=== PATIENT | male | born 1965 | race Two or more races ===

== ENCOUNTER 2018-11-18 12:57 | Observation (INO) | payer OTHER ==
[2018-11-18 13:16] VITALS: BMI 28.3
--- NOTE | 2018-11-18 13:16 | PDOC ---
Rapid Medical Evaluation Time Seen by Provider: 11/18/18 13:11 Medical Evaluation: Allergies Allergy/AdvReac Type Severity Reaction Status Date / Time aspirin Allergy unknown Verified 12/02/16 02:26 11/18/18 13:11 I performed a brief in-person evaluation of this patient. Chief complaint is: Sent by Dr. Gaurav Ricketts, seen in office with headache and HTN (190 systolic). Headache started 3 days ago. Has dizziness and blurry vision today. Took Lisinopril/HCTZ prior to arrival. Pertinent physical exam findings include: No focal neurologic deficits. BP here 155/85. I have ordered the following: EKG, labs, HCT Patient will proceed to the ED for further evaluation. Discharge Disposition - Diagnosis Headache Qualifiers: Headache type: unspecified Headache chronicity pattern: acute headache High blood pressure Qualifiers: Hypertension type: unspecified Qualified Code(s): I10 - Essential (primary) hypertension - Referrals - Patient Instructions - Post Discharge Activity
[2018-11-18 13:41] LABS: BASO % 0.4 % (0-2.0); EOS % 1.1 % (0-4.5); HEMOGLOBIN 14.6 GM/dL (11.7-16.9); LYMPH % 30.8 % (8-40); MCH 27.2 pg (25.7-33.7); MCHC 33.8 g/dl (32.0-35.9); MEAN CELL VOLUME 80.3 fl (80-96); MEAN PLT VOLUME 8.6 fl (7.5-11.1); MONO % 6.4 % (3.8-10.2); NEUT % 61.3 % (42.8-82.8); PLATELET COUNT 97 K/MM3 (134-434); RBC 5.36 M/mm3 (4.00-5.60); RDW 13.8 % (11.9-15.9); WHITE BLOOD COUNT 3.7 K/mm3 (4.0-10.0)
[2018-11-18] MEDS ORDERED: ACETAMINOPHEN 325 MG TABLET (FP) PO ONE (13:48)
[2018-11-18] MEDS ORDERED: ACETAMINOPHEN 325 MG TABLET (FP) ONE (14:00)
--- NOTE | 2018-11-18 14:08 | PDOC ---
History of Present Illness - General Chief Complaint: Blood Pressure Problem Stated Complaint: BLOOD PRESSURE PROBLEM Time Seen by Provider: 11/18/18 13:11 - History of Present Illness Initial Comments: Bryant Jung is a 53yo man with a PMH of HTN who was sent from his PMD with symptomatic hypertension. He is Burmese-speaking only, and a smocker was used to obtain his history. Mr Jung states that he went to his PMD today becuase he feared that his blood pressure was high. He has had a headache for several days, which he describes as posterior neck pain that extends to the occipital head and around to his b/l forehead. He additionally notes some blurry vision when the headache was most severe. Mr reports a history of poorly controlled BP, and he states that these are the symptoms he always has when his pressure is high. He and his state that his doctor told him to take an additional dose of his home BP meds ( lisinopril 10, HCTZ 12.5) and directed him to come to the ED for evaluation. He also states that his PMD is going to set him up with a heart monitor at home due to the sensation of being able to feel his heart beating on occasion, which Mr Jung feels is related to his BP being high. Per his , Mr Jung was previously admitted with HTN and given a medication at home for several months that controlled his hypertension better, but he was taken off of it after 3-4 months; they do not remember the name of this medication. Mr Jung does state that he has been taking his medications at home as prescribed, and he has not missed any doses lately. He denies chest pain, SOB, focal weakness, confusion, AMS (also denied by his ), numbness/tingling, change in hearing, or change in urination. His headaches start in the posterior neck and extend around his head in a band. He has not tried taking any pain medication for the headaches, but he has noticed in the past that putting an ice pack on his neck helps with the headache. He does endorse a significant amount of stress recently. Mr Jung reports that after taking an extra dose of his BP medication today he feels significantly improved, with his headache nearly resolved, normal vision, and no other symptoms currently. Past History - Past Medical History Allergies/Adverse Reactions: Allergies Allergy/AdvReac Type Severity Reaction Status Date / Time aspirin Allergy unknown Verified 11/18/18 13:11 Home Medications: Ambulatory Orders Losartan 50Mg/Hctz 12.5MG [Hyzaar -] 1 tab PO DAILY 11/18/18 COPD: No HTN: Yes - Surgical History Appendectomy: Yes - Suicide/Smoking/Psychosocial Hx Smoking History: Never smoked Have you smoked in the past 12 months: No Information on smoking cessation initiated: No Hx Alcohol Use: No Drug/Substance Use Hx: No Review of Systems - Review of Systems Comments:: General: No fevers, no chills, no weight or appetite change, no malaise HEENT: +Blurry vision, +JUAREZ, no changes in hearing, no congestion, no sore throat CV: No chest pain, +Palpitations, +h/o HTN, no LE edema Pulm: No SOB, no cough, no wheezing GI: No nausea or vomiting, no change in bowel habits, no melena : No frequency, no urgency, no dysuria Musc: No back pain, no joint swelling, no recent injury Skin: No rash, no lesions, no erythema Endo: No excessive thirst, no heat/cold intolerance Heme: No unusual bruising or bleeding, no swollen glands Neuro: No syncope, no numbness/tingling, no focal weakness Vasc: No claudication Psych: No recent change in mood, no SI or HI *Physical Exam - Vital Signs Last Vital Signs Temp Pulse Resp BP Pulse Ox 98.6 F 75 18 155/85 96 11/18/18 13:12 11/18/18 13:12 11/18/18 13:12 11/18/18 13:12 11/18/18 13:12 - Physical Exam Comments: General: Comfortable, no acute distress HEENT: PERRL, EOMI, MMM, voice normal, normal neck ROM, no LAD Cards: RRR, no murmur appreciated Pulm: Comfortable on room air, clear to auscultation bilaterally Abd: Soft, nontender, nondistended : No CVA tenderness Ext: Atraumatic. No LE edema. ROM intact. Strength 5/5 and equal bilaterally Vasc: Extremities WWP. Palpable radial and pedal pulses bilaterally Skin: Normal color, no rashes or lesions Neuro: A&Ox3, CN grossly intact, normal speech, motor/sensory grossly intact and symmetric Psych: Mood appropriate to situation Moderate Sedation - Procedure Monitoring Vital Signs: Procedure Monitoring Vital Signs Temperature 98.6 F 11/18/18 13:12 Pulse Rate 75 11/18/18 13:12 Respiratory Rate 18 11/18/18 13:12 Blood Pressure 155/85 11/18/18 13:12 O2 Sat by Pulse Oximetry (%) 96 11/18/18 13:12 ED Treatment Course - LABORATORY CBC & Chemistry Diagram: 11/18/18 13:31 11/18/18 13:31 - RADIOLOGY Radiology Studies Ordered: Category Date Time Status HEAD CT WITHOUT CONTRAST [CT] Stat CT Scan 11/18/18 13:57 Ordered Medical Decision Making - Medical Decision Making 11/18/18 13:58 Bryant Jung is a 53yo man with a PMH of HTN who presents from his PMD due to symptomatic HTN with headache and blurry vision today. His SBP was 192 in the office, but was reduced to 158 on arrival after taking an additional dose of his home lisinopril/HCTZ. - Currently benign exam, blurry vision and JUAREZ resolved, but does report having the sensation of feeling his heart beating earlier today as well. Concerning for possible hypertensive emergency, ACS, or potentially intracranial hemorrhage given HTN, JUAREZ, vision changes. - Per pt, has had significant stress and baseline poorly controlled hypertension. Also reports significant stress lately. Could be poor BP control at baseline with tension headache that he did not attempt to treat at home, assuming it was due to his BP. - CBC, CMP, UA, EKG, CXR, non-contrast CT head ordered in E (CT canceled and reordered following discussion with Dr Harden). - EKG completed on arrival to main ED. Up-sloping ST segments in lateral leads seen on prior EKGs, most likely early repolarization. New T-wave inversions concerning for possible ischemia in I, II, III, aVF - Acetaminophen for JUAREZ 11/18/18 14:15 - CBC and chemistry unremarkable. Trop added on given EKG changes, lab called 11/18/18 14:29 - Previous EKG sent by patient's tool radial drill press set up operator from approximately 2 weeks ago. Appears very similar to EKG from today. T-wave depressions were seen previously , so lower concern that the changes are due to acute ischemia today - Aluminizer also noted that Mr Jung had been scheduled for a stress test but did not show; will advise Mr Jung to reschedule 11/18/18 15:07 - CT head completed, reviewed in ED. Radiology report also completed. No acute abnormalities. - Trop completed, 0.05. Within normal range but elevated from 0.02 one year ago. Will recheck in 30 minutes to ensure that it is not continuing to rise. - If second trop is negative, will likely discharge home with cardiology follow up. However, did report to Dr Harden that he had chest pain earlier today. 11/18/18 18:25 - Repeat troponin 0.06, increased slightly since initial lab. - Discussed obs admission for ACS ruleout with Mr Jung and his . They understand and agree with the plan. - Page sent to hospitalist; PMD is out of [facility] [employer] system (Dr Campbell?) - Currently appears comfortable, no chest pain 11/18/18 18:49 - Discussed with Dr Sweeney. Will accept to tele obs. Requested consult for Dr Dave. Discussed with Dr Harden and Dr Burgess. Lisy Trujillo PGY1 *DC/Admit/Observation/Transfer Diagnosis at time of Disposition: Chest pain Headache Qualifiers: Headache type: unspecified Headache chronicity pattern: acute headache High blood pressure Qualifiers: Hypertension type: unspecified Qualified Code(s): I10 - Essential (primary) hypertension - Discharge Dispostion Decision to Admit order: Yes - Referrals - Patient Instructions Additional Instructions: Discharge Instructions: You were seen in the emergency department for a headache and high blood pressure. Your blood pressure had already decreased by the time you arrived at the hospital. While in the emergency department, you had tests to check your blood counts, electrolytes, kidney function, and heart. You also had a CT scan of your head for evaluation because you reported having vision changes. All of your lab tests and CT scan were normal. Home Care: - Continue to take all of your medications as previously prescribed - You may consider getting a blood pressure machine at your house so that you can check your blood pressure at home. This can let you know whether your headaches or other symptoms are due to your hypertension or from some other reason. If you notice that your systolic pressure (top number) is over 160 you should see a doctor. - If you continue to have headaches, you can try taking acetaminophen (Tylenol) 650-1000mg up to every 6 hours as needed for pain. Follow Up: - See your regular doctor within the next 2-3 days for a blood pressure check. - You should make an appointment to see your tool radial drill press set up operator within the next week. You may need additional testing or a medication change. Your tool radial drill press set up operator also stated that you need to reschedule a stress test. - Seek immediate medical care if you have continued or worsening headache or if you develop additional symptoms along with your headache including any neurological symptoms (one-sided weakness, confusion, sleepiness, changes in speech), multiple episodes of vomiting, chest pain, shortness of breath, or have any medical emergency. Instrucciones de descarga: Usted fue visto en el departamento de emergencias por un dolor de noe y presin arterial yaw. Rahman presin arterial ya haba disminuido cuando lleg al hospital. Mientras estaba en el departamento de emergencias, se le realizaron pruebas para verificar naya recuentos sanguneos, electrolitos, funcin renal y corazn. Tambin se le realiz neil tomografa computarizada de la noe para rahman evaluacin porque inform que [place] cambios en la visin. Todas naya pruebas de laboratorio y tomografa computarizada fueron normales. Cuidados en el hogar: - Contine tomando todos naya medicamentos segn lo prescrito anteriormente. - Puede considerar comprar neil mquina de presin arterial en rahman casa para poder controlarla en rahman hogar. Kell puede hacerle saber si naya oriana de noe u otros sntomas se deben a rahman hipertensin o por alguna otra razn. Si nota que rahman presin sistlica (nmero superior) es superior a 160, debe consultar a un mdico. - Si contina teniendo oriana de noe, puede intentar luz maria acetaminofn ( Tylenol) 650-1000mg cada 6 horas segn sea necesario para el dolor. Seguir: - Consulte a rahman mdico de cabecera dentro de los siguientes 2 a 3 childs para neil revisin de la presin arterial. - Debe hacer neil loki para savanna a rahman cardilogo dentro de la prxima semana. Es posible que necesite pruebas adicionales o un cambio de medicacin. Rahman cardilogo tambin declar que necesita reprogramar neil prueba de esfuerzo. - Busque atencin mdica inmediata si juarez continuado o empeorado el dolor de noe o si desarrolla sntomas adicionales junto con rahman dolor de noe, incluidos sntomas neurolgicos (debilidad unilateral, confusin, somnolencia, cambios en el habla), episodios mltiples de vmitos, dolor en el pecho, falta de aire de aliento, o tiene alguna emergencia mdica. - Post Discharge Activity
[2018-11-18 14:15] LABS: ALK PHOS 75 U/L (45-117); ANION GAP 5 MMOL/L (8-16); BILIRUBIN,TOTAL 0.5 mg/dL (0.2-1); BLOOD UREA NITROGEN 18 mg/dL (7-18); CALCIUM 8.4 mg/dL (8.5-10.1); CHLORIDE 103 mmol/L (98-107); CO2 31 mmol/L (21-32); CREATININE 1.2 mg/dL (0.55-1.3); GLUCOSE,RANDOM 88 mg/dL (74-106); POTASSIUM 3.6 mmol/L (3.5-5.1); SGOT/AST 26 U/L (15-37); SGPT/ALT 40 U/L (13-61); SODIUM 140 mmol/L (136-145); TOT PROT 7.5 g/dl (6.4-8.2)
--- NOTE | 2018-11-18 14:22 | PDOC ---
Attending Attestation - Resident Resident Name: Lisy Trujillo - ED Attending Attestation I have performed the following: I have examined & evaluated the patient, The case was reviewed & discussed with the resident, I agree w/resident's findings & plan, Exceptions are as noted - HPI HPI: 11/18/18 15:13 The patient is a 53 year old M with a significant PMH of HTN who presents to the emergency department with a headache and chest pain since last night. Patient states he has had prior visits to the ER for poorly controlled HTN with similar symptoms as he presents today. Patient states he typically gets headaches with associated chest pressure when his blood pressure is elevated. Patient describes the chest pain as mild and intermittent with associated tachycardia. Patient went to his PCPs office today for an appointment and was told his blood pressure was in the 190s systolic. The PCP told him to take an additional dose of his lisinopril and hydrochlorothiazide and come to the ER for further evaluation. Patient is still complaining of a mild headache, but denies any chest pain. The patient dnies leg swelling, denies shortness of breath, and denies dizziness. Denies fever, chills, nausea, vomit, diarrhea and constipation. Denies dysuria, frequency, urgency and hematuria. Allergies: NKA Past surgical history: None reported. Social history: No reported alcohol, drug or cigarette use - Physicial Exam PE: 11/18/18 15:15 "GENERAL: Awake, alert, and fully oriented, in no acute distress. HEAD: No signs of trauma EYES: PERRLA, EOMI, sclera anicteric, conjunctiva clear ENT: Auricles normal inspection, hearing grossly normal, nares patent, oropharynx clear without exudates. Moist mucosa NECK: Nontender, no stepoffs, Normal ROM, supple, no lymphadenopathy, JVD, or masses LUNGS: Breath sounds equal, clear to auscultation bilaterally. No wheezes, and no crackles HEART: Regular rate and rhythm, normal S1 and S2, no murmurs, rubs or gallops ABDOMEN: Soft, nontender, normoactive bowel sounds. No guarding, no rebound. No masses EXTREMITIES: Normal range of motion, no edema. No clubbing or cyanosis. No cords, erythema, or tenderness NEUROLOGICAL: Cranial nerves II through XII intact. 5/5 strength and sensation in all extremities, Normal speech, normal gait, normal cerebellar function SKIN: Warm, Dry, normal turgor, no rashes or lesions noted. - Medical Decision Making 11/18/18 15:15 53 M with HTN presenting to ED with JUAREZ and chest pressure, now improved after BP control. Pt with TWI on EKG that are confirmed to be old (I spoke with pt's vc++ developer over phone). Pt currently chest pain free. - Labs, tropx2 - CT head - Tylenol 11/18/18 16:08 Labs wnl, trop negative x1 CT head unremarkable 11/18/18 17:12 Repeat trop now up to 0.06 Will admit to tele obs Heart Score/ECG Review - History History: Slightly suspicious - Electrocardiogram EKG: Non specific repolarization disturbance - Age Age: 45-65 - Risk Factors Risk Factors Heart Score: Yes Hx Hypertension, Yes Positive family hx of cardiac disease Based on the list above the patient has:: 1-2 risk factors - Troponin Troponin: </= normal limit - Score Heart Score - Total: 3
--- NOTE | 2018-11-18 15:19 | EKG ---
Test Reason : Blood Pressure : / mmHG Vent. Rate : 074 BPM Atrial Rate : 074 BPM P-R Int : 176 ms QRS Dur : 112 ms QT Int : 390 ms P-R-T Axes : 056 036 -86 degrees QTc Int : 432 ms NORMAL SINUS RHYTHM VOLTAGE CRITERIA FOR LEFT VENTRICULAR HYPERTROPHY T WAVE ABNORMALITY, CONSIDER INFEROLATERAL ISCHEMIA ABNORMAL ECG WHEN COMPARED WITH ECG OF 02-DEC-2016 02:26, T WAVE INVERSION NOW EVIDENT IN INFERIOR LEADS INVERTED T WAVES HAVE REPLACED NONSPECIFIC T WAVE ABNORMALITY IN LATERAL LEADS Confirmed by ELOY AMIN, MICAELA ([id number]) on 11/18/2018 3:18:41 PM Referred By: Confirmed By:MICAELA LYONS MD
[2018-11-18 17:23] LABS: URINE APPEARANCE CLEAR; URINE BILIRUBIN NEGATIVE (<2.0 mg/dL); URINE COLOR STRAW; URINE GLUCOSE (UA) NEGATIVE (NEGATIVE); URINE KETONE NEGATIVE (NEGATIVE); URINE LEUK ESTERASE NEGATIVE (NEGATIVE); URINE NITRITE NEGATIVE (NEGATIVE); URINE PROTEIN NEGATIVE (NEGATIVE); URINE UROBILINOGEN NEGATIVE mg/dL (0.2-1.0)
--- NOTE | 2018-11-18 20:05 | HP ---
Admitting History and Physical - Primary Care Physician PCP: Kyara Sweeney - Admission History of Present Illness: Bryant Jung is a 53yo man with a PMH of HTN who was sent from his PMD with symptomatic hypertension. He is Maori-speaking only, and a rackman was used to obtain his history. Mr Jung states that he went to his PMD today becuase he feared that his blood pressure was high. He has had a headache for several days, which he describes as posterior neck pain that extends to the occipital head and around to his b/l forehead. He additionally notes some blurry vision when the headache was most severe. Mr reports a history of poorly controlled BP, and he states that these are the symptoms he always has when his pressure is high. He and his state that his doctor told him to take an additional dose of his home BP meds ( lisinopril 10, HCTZ 12.5) and directed him to come to the ED for evaluation. - Past Medical History Cardiovascular: Yes: HTN - Smoking History Smoking history: Never smoked Have you smoked in the past 12 months: No - Alcohol/Substance Use Hx Alcohol Use: No Home Medications - Allergies Allergies/Adverse Reactions: Allergies Allergy/AdvReac Type Severity Reaction Status Date / Time aspirin Allergy unknown Verified 11/18/18 13:11 - Home Medications Home Medications: Ambulatory Orders Losartan 50Mg/Hctz 12.5MG [Hyzaar -] 1 tab PO DAILY 11/18/18 Carvedilol [Coreg -] 6.25 mg PO BID #60 tablet 11/20/18 Review of Systems - Review of Systems Cardiovascular: reports: Chest Pain Neurological: reports: Headache Physical Examination Vital Signs: Vital Signs Temperature 98.6 F 11/18/18 13:12 Pulse Rate 75 11/18/18 13:12 Respiratory Rate 18 11/18/18 13:12 Blood Pressure 155/85 11/18/18 13:12 O2 Sat by Pulse Oximetry (%) 96 11/18/18 13:12 Constitutional: Yes: No Distress HENT: Yes: Atraumatic Neck: Yes: Supple Cardiovascular: Yes: Regular Rate and Rhythm Respiratory: Yes: CTA Bilaterally Gastrointestinal: Yes: Normal Bowel Sounds Extremities: Yes: WNL Edema: No Peripheral Pulses WNL: Yes Neurological: Yes: Alert, Oriented Labs: CBC, BMP 11/18/18 13:31 11/18/18 13:31 Imaging - Results Chest X-ray: Report Reviewed Cat Scan: Report Reviewed Problem List - Problems (1) Chest pain Assessment/Plan: tele monitoring fu cardiac profile cardiology consult Code(s): R07.9 - CHEST PAIN, UNSPECIFIED Qualifiers: Chest pain type: other chest pain Qualified Code(s): R07.89 - Other chest pain; R07.8 - Other chest pain (2) Headache Assessment/Plan: prn tylenol monitor bp Code(s): R51 - HEADACHE Qualifiers: Headache type: unspecified Headache chronicity pattern: acute headache (3) Hypertension Assessment/Plan: on meds Code(s): I10 - ESSENTIAL (PRIMARY) HYPERTENSION Qualifiers: Hypertension type: unspecified Qualified Code(s): I10 - Essential (primary ) hypertension Assessment/Plan Laboratory Tests 11/18/18 11/18/18 11/18/18 13:31 13:31 17:00 WBC 3.7 L RBC 5.36 Hgb 14.6 Hct 43.0 MCV 80.3 MCH 27.2 MCHC 33.8 RDW 13.8 Plt Count 97 L MPV 8.6 Absolute Neuts (auto) 2.3 Neutrophils % 61.3 Lymphocytes % 30.8 Monocytes % 6.4 Eosinophils % 1.1 Basophils % 0.4 Nucleated RBC % 0 Sodium 140 Potassium 3.6 Chloride 103 Carbon Dioxide 31 Anion Gap 5 L BUN 18 Creatinine 1.2 Creat Clearance w eGFR > 60 Random Glucose 88 Calcium 8.4 L Total Bilirubin 0.5 AST 26 ALT 40 Alkaline Phosphatase 75 Creatine Kinase 433 H Creatine Kinase Index 0.5 CK-MB (CK-2) 2.5 Troponin I 0.05 0.06 H Total Protein 7.5 Albumin 4.0 Urine Color Urine Appearance Urine pH Ur Specific [place] Urine Protein Urine Glucose (UA) Urine Ketones Urine Blood Urine Nitrite Urine Bilirubin Urine Urobilinogen Ur Leukocyte Esterase 11/18/18 17:12 WBC RBC Hgb Hct MCV MCH MCHC RDW Plt Count MPV Absolute Neuts (auto) Neutrophils % Lymphocytes % Monocytes % Eosinophils % Basophils % Nucleated RBC % Sodium Potassium Chloride Carbon Dioxide Anion Gap BUN Creatinine Creat Clearance w eGFR Random Glucose Calcium Total Bilirubin AST ALT Alkaline Phosphatase Creatine Kinase Creatine Kinase Index CK-MB (CK-2) Troponin I Total Protein Albumin Urine Color Straw Urine Appearance Clear Urine pH 7.0 Ur Specific [place] 1.009 L Urine Protein Negative Urine Glucose (UA) Negative Urine Ketones Negative Urine Blood Negative Urine Nitrite Negative Urine Bilirubin Negative Urine Urobilinogen Negative Ur Leukocyte Esterase Negative Active Medications Generic Name Dose Route Start Last Admin Trade Name Freq PRN Reason Stop Dose Admin Acetaminophen 650 mg 11/18/18 20:06 Tylenol - PO Q6H PRN FEVER Carvedilol 6.25 mg 11/19/18 13:45 11/20/18 09:56 Coreg - PO 6.25 mg BID HYACINTH Administration HCTZ/Losartan Potassium 1 tab 11/19/18 10:00 11/20/18 09:56 Hyzaar - PO 1 tab DAILY HYACINTH Administration
[2018-11-18] MEDS ORDERED: ACETAMINOPHEN 325 MG TABLET (FP) PO PRN (20:06)
[2018-11-19] MEDS: LOSARTAN 50MG/HCTZ 12.5MG 1 TAB (FP) PO SCH (10:27)
--- NOTE | 2018-11-19 12:58 | CON.CARD ---
Consult Consult Specialty:: Cardiology Referred by:: Emergency Medicine Lisy Trujillo Reason for Consultation:: Hypertensive urgency - History of Present Illness Chief Complaint: Headache History of Present Illness: Bryant Jung is a 53yo man with a PMH of HTN who was sent from his PMD with symptomatic hypertension. He is Turkmen-speaking only, history per chart review. The patient is a 53 year old M with a significant PMH of HTN who presents to the emergency department with a headache and chest pain since last night. Patient states he has had prior visits to the ER for poorly controlled HTN with similar symptoms as he presents today. Patient states he typically gets headaches with associated chest pressure when his blood pressure is elevated. Patient describes the chest pain as mild and intermittent with associated tachycardia and palpitations. Patient presented to his PCPs office for an appointment and was told his blood pressure was in the 190s systolic. The PCP told him to take an additional dose of his lisinopril and hydrochlorothiazide and come to the ER for further evaluation. Patient is still complaining of a mild headache, but denies any chest pain, leg swelling, shortness of breath, near or true syncope, orthopnea, PND or LE edema. He last saw bus info consultant 11/04 for similar symptoms. Allergies: ASA, Motrin->facial swelling Past surgical history: None reported. Social history: No reported alcohol, drug or cigarette use Personal Injury Litigation Paralegal: Henry Cortes MD at [facility] last visit 2018 - History Source History Provided By: Medical Record Limitations to Obtaining History: Language Barrier - Past Medical History Cardio/Vascular: Yes: HTN - Alcohol/Substance Use Hx Alcohol Use: No - Smoking History Smoking history: Never smoked Have you smoked in the past 12 months: No Home Medications - Allergies Allergies/Adverse Reactions: Allergies Allergy/AdvReac Type Severity Reaction Status Date / Time aspirin Allergy unknown Verified 11/18/18 13:11 - Home Medications Home Medications: Ambulatory Orders Losartan 50Mg/Hctz 12.5MG [Hyzaar -] 1 tab PO DAILY 11/18/18 Review of Systems - Review of Systems Cardiovascular: reports: Chest Pain, Palpitations Neurological: reports: Headache Vital Signs: Vital Signs Temperature 98.1 F 11/19/18 09:15 Pulse Rate 72 11/19/18 09:15 Respiratory Rate 16 11/19/18 09:15 Blood Pressure 173/100 H 11/19/18 09:15 O2 Sat by Pulse Oximetry (%) 96 11/19/18 09:15 Constitutional: Yes: No Distress, Calm Neck: Yes: Supple Respiratory: Yes: Regular, Diminished Gastrointestinal: Yes: Normal Bowel Sounds, Soft Cardiovascular: Yes: Regular Rate and Rhythm JVD: No Carotid Bruit: No Heart Sounds: Yes: S1, S2 Edema: No - Other Data Labs, Other Data: CBC, BMP 11/18/18 13:31 11/18/18 13:31 Troponin, BNP 11/18/18 11/18/18 13:31 17:00 Troponin I 0.05 0.06 H Troponin, BNP 11/18/18 11/18/18 13:31 17:00 Troponin I 0.05 0.06 H NSR @ 74 LVH with repol abnl Ejection Fraction %: LVEF > or = 40 % Imaging - Results Chest X-ray: Report Reviewed (NAD) Cat Scan: Report Reviewed (HCT: Negative) Problem List - Problems (1) Hypertensive urgency Code(s): I16.0 - HYPERTENSIVE URGENCY (2) Hypertensive heart disease Code(s): I11.9 - HYPERTENSIVE HEART DISEASE WITHOUT HEART FAILURE Qualifiers: Heart failure presence: without heart failure Qualified Code(s): I11.9 - Hypertensive heart disease without heart failure (3) Hypertensive encephalopathy Code(s): I67.4 - HYPERTENSIVE ENCEPHALOPATHY (4) Palpitations Code(s): R00.2 - PALPITATIONS (5) Subendocardial ischemia Code(s): I24.8 - OTHER FORMS OF ACUTE ISCHEMIC HEART DISEASE (6) Chest pain Code(s): R07.9 - CHEST PAIN, UNSPECIFIED Qualifiers: Chest pain type: other chest pain Qualified Code(s): R07.89 - Other chest pain; R07.8 - Other chest pain Assessment/Plan Echo: 11/04/2018 Mod cLVH and borderline normal LV systolic function LVEF 50-55% , mild MR, TR, AR 1. Hypertensive urgency, heart disease with encephelopathy 2. Palpitations r/o sustained arrhythmia 3. Diastolic dysfunction with subendocardial ischemia 4. Mild-mod PAD R>L 5. ASA allergy->facial swelling P:1. Trend trops to document peak, telemetry to assess arrhythmia burden 2. Add carvedilol 6.25 bid, agree with Hyzaar 50/12.5 qd with uptitration as tolerated 3. F/u with Dr. Henry Cortes upon d/c, he has already planned for him to undergo stress echo to exclude ischemia and holter monitoring to assess arrhythmia burden as outpatient 4. Thank you for consultative opportunity
[2018-11-19] MEDS ORDERED: CARVEDILOL 3.125 MG TABLET (FP) ONE (13:44)
[2018-11-19] MEDS: CARVEDILOL 6.25 MG TABLET (FP) PO SCH ×2 (13:45→21:09)
[2018-11-20] MEDS ORDERED: PT OWN MED DRAWER 7, Y5N ONE (09:52)
[2018-11-20] MEDS: LOSARTAN 50MG/HCTZ 12.5MG 1 TAB (FP) PO SCH (09:56)
[2018-11-20] MEDS: CARVEDILOL 6.25 MG TABLET (FP) PO SCH (09:56)
--- NOTE | 2018-11-20 10:55 | PN ---
Progress Note, Physician History of Present Illness: Chest pain, headache and palpitations resolved with addition of carvedilol and improved BP control. Automotive Parts Counterperson: Henry Cortes MD at [facility] last visit 2018 - Current Medication List Current Medications: Active Medications Acetaminophen (Tylenol -) 650 mg PO Q6H PRN PRN Reason: FEVER Carvedilol (Coreg -) 6.25 mg PO BID [facility] Last Admin: 11/20/18 09:56 Dose: 6.25 mg HCTZ/Losartan Potassium (Hyzaar -) 1 tab PO DAILY [facility] Last Admin: 11/20/18 09:56 Dose: 1 tab - Objective Vital Signs: Vital Signs Temperature 97.6 F 11/20/18 05:00 Pulse Rate 64 11/20/18 05:00 Respiratory Rate 18 11/20/18 05:00 Blood Pressure 157/70 11/20/18 05:00 O2 Sat by Pulse Oximetry (%) 98 11/20/18 04:00 Constitutional: Yes: No Distress, Calm Neck: Yes: Supple Cardiovascular: Yes: Regular Rate and Rhythm Respiratory: Yes: Regular, CTA Bilaterally Gastrointestinal: Yes: Normal Bowel Sounds, Soft Edema: No Labs: CBC, BMP 11/18/18 13:31 11/18/18 13:31 - ....Imaging EKG: Report Reviewed (Tele: NSR) Problem List - Problems (1) Hypertensive urgency Code(s): I16.0 - HYPERTENSIVE URGENCY (2) Hypertensive heart disease Code(s): I11.9 - HYPERTENSIVE HEART DISEASE WITHOUT HEART FAILURE Qualifiers: Heart failure presence: without heart failure Qualified Code(s): I11.9 - Hypertensive heart disease without heart failure (3) Hypertensive encephalopathy Code(s): I67.4 - HYPERTENSIVE ENCEPHALOPATHY (4) Palpitations Code(s): R00.2 - PALPITATIONS (5) Subendocardial ischemia Code(s): I24.8 - OTHER FORMS OF ACUTE ISCHEMIC HEART DISEASE (6) Chest pain Code(s): R07.9 - CHEST PAIN, UNSPECIFIED Qualifiers: Chest pain type: other chest pain Qualified Code(s): R07.89 - Other chest pain; R07.8 - Other chest pain Assessment/Plan Echo: 11/04/2018 Mod cLVH and borderline normal LV systolic function LVEF 50-55% , mild MR, TR, AR 1. Hypertensive urgency, heart disease with encephelopathy resolved 2. Palpitations w/o events on telemetry 3. Diastolic dysfunction with subendocardial ischemia 4. Mild-mod PAD R>L 5. ASA allergy->facial swelling P:1. Trops have peaked, telemetry w/o arrhythmia 2. Continue carvedilol 6.25 bid and Hyzaar 50/12.5 qd with uptitration as tolerated 3. May d/c home with f/u with Dr. Henry Cortes, he has already planned for him to undergo stress echo to exclude ischemia and holter monitoring to assess arrhythmia burden as outpatient 4. Thank you for consultative opportunity
[2018-11-20 11:07] VITALS: BP 133/73; PULSE 66; TEMP 98.2
--- NOTE | 2018-11-20 11:56 | DS ---
Physical Examination Vital Signs: Vital Signs Temperature 98.2 F 11/20/18 09:00 Pulse Rate 66 11/20/18 09:00 Respiratory Rate 18 11/20/18 09:00 Blood Pressure 133/73 11/20/18 09:00 O2 Sat by Pulse Oximetry (%) 98 11/20/18 09:00 Constitutional: Yes: No Distress HENT: Yes: Atraumatic Neck: Yes: Supple Cardiovascular: Yes: Regular Rate and Rhythm Respiratory: Yes: CTA Bilaterally Extremities: Yes: WNL Edema: No Peripheral Pulses WNL: Yes Neurological: Yes: Alert, Oriented Labs: CBC, BMP 11/18/18 13:31 11/18/18 13:31 Discharge Summary Reason For Visit: CHEST PAIN,HYPERTENSIOON Current Active Problems Chest pain (Acute) Headache (Acute) Hypertension (Acute) Hypertensive encephalopathy (Acute) Hypertensive heart disease (Acute) Hypertensive urgency (Acute) Palpitations (Acute) Subendocardial ischemia (Acute) Condition: Stable - Instructions Diet, Activity, Other Instructions: Discharge Instructions: You were seen in the emergency department for a headache and high blood pressure. Your blood pressure had already decreased by the time you arrived at the hospital. While in the emergency department, you had tests to check your blood counts, electrolytes, kidney function, and heart. You also had a CT scan of your head for evaluation because you reported having vision changes. All of your lab tests and CT scan were normal. Home Care: - Continue to take all of your medications as previously prescribed - You may consider getting a blood pressure machine at your house so that you can check your blood pressure at home. This can let you know whether your headaches or other symptoms are due to your hypertension or from some other reason. If you notice that your systolic pressure (top number) is over 160 you should see a doctor. - If you continue to have headaches, you can try taking acetaminophen (Tylenol) 650-1000mg up to every 6 hours as needed for pain. Follow Up: - See your regular doctor within the next 2-3 days for a blood pressure check. - You should make an appointment to see your assistant county engineer within the next week. You may need additional testing or a medication change. Your assistant county engineer also stated that you need to reschedule a stress test. - Seek immediate medical care if you have continued or worsening headache or if you develop additional symptoms along with your headache including any neurological symptoms (one-sided weakness, confusion, sleepiness, changes in speech), multiple episodes of vomiting, chest pain, shortness of breath, or have any medical emergency. Instrucciones de descarga: Usted fue visto en el departamento de emergencias por un dolor de noe y presin arterial yaw. [place] presin arterial ya haba disminuido cuando lleg al hospital. Mientras estaba en el departamento de emergencias, se le realizaron pruebas para verificar naya recuentos sanguneos, electrolitos, funcin renal y corazn. Tambin se le realiz neil tomografa computarizada de la noe para [place]ster evaluacin porque inform que [place] cambios en la visin. Todas naya pruebas de laboratorio y tomografa computarizada fueron normales. Cuidados en el hogar: - Contine tomando todos naya medicamentos segn lo prescrito anteriormente. - Puede considerar comprar neil mquina de presin arterial en chester casa para poder controlarla en [place] hogar. [place] puede hacerle saber si naya oriana de noe u otros sntomas se deben a chester hipertensin o por alguna otra razn. Si nota que [place] presin sistlica (nmero superior) es superior a 160, debe consultar a un mdico. - Si contina teniendo oriana de noe, puede intentar luz maria acetaminofn ( Tylenol) 650-1000mg cada 6 horas segn sea necesario para el dolor. Seguir: - Consulte a chester mdico de cabecera dentro de los siguientes 2 a 3 childs para neil revisin de la presin arterial. - Debe hacer neil loki para savanna a chester cardilogo dentro de la prxima semana. Es posible que necesite pruebas adicionales o un cambio de medicacin. [place] cardilogo tambin declar que necesita reprogramar neil prueba de esfuerzo. - Busque atencin mdica inmediata si andrade continuado o empeorado el dolor de noe o si desarrolla sntomas adicionales junto con [place] dolor de noe, incluidos sntomas neurolgicos (debilidad unilateral, confusin, somnolencia, cambios en el habla), episodios mltiples de vmitos, dolor en el pecho, falta de aire de aliento, o tiene alguna emergencia mdica. Disposition: HOME - Home Medications Comprehensive Discharge Medication List: Ambulatory Orders Losartan 50Mg/Hctz 12.5MG [Hyzaar -] 1 tab PO DAILY 11/18/18 Carvedilol [Coreg -] 6.25 mg PO BID #60 tablet 11/20/18 dc home
== END 2018-11-20 14:04 | disposition home or self-care (01) ==
LOC: JER 12:57 → JERBED 18:31 → UNDOADMOB 11-19 18:31 → JERBED 11-19 18:31 → J4W 11-19 20:43
PROVIDERS: ADMIT Internal Medicine; ATTEND Internal Medicine
DX: R07.89 Other chest pain (principal); I16.0 Hypertensive urgency; I11.9 Hypertensive heart disease without heart failure; I67.4 Hypertensive encephalopathy; R00.2 Palpitations; I24.8 Other forms of acute ischemic heart disease; R51 Headache; I10 Essential (primary) hypertension; Z88.6 Allergy status to analgesic agent
CPT/HCPCS: 36415; 70450-TC; 71046-TC-FY; 80053; 81003; 82550; 82553; 84484; 85025; 93005; 93010; 99285-25; G0378

== ENCOUNTER 2019-08-05 22:38 | Inpatient (IN) | payer OTHER ==
[2019-08-05 22:58] VITALS: BMI 29.2
[2019-08-06] MEDS ORDERED: LABETALOL HCL 5 MG/1 ML (100MG/20 ML VIAL) IVPUSH ONE (00:15)
--- NOTE | 2019-08-06 00:32 | PDOC ---
*Physical Exam - Vital Signs Last Vital Signs Temp Pulse Resp BP Pulse Ox 98.2 F 82 16 210/90 H 96 08/05/19 22:54 08/05/19 22:54 08/05/19 22:54 08/05/19 22:54 08/05/19 22:54 ED Treatment Course - LABORATORY CBC & Chemistry Diagram: 08/06/19 01:07 08/06/19 06:36 Medical Decision Making - Medical Decision Making 08/06/19 00:31 Mr Jung presents to the ER having NOT taken his blood pressure medications for the past 3 weeks Pt does not know the name of his medications Pt reports headache No weakness, no AMS Will attempt to find pt BP meds and re initiate it Pt seen by Midlevel Provider under my direct supervision Pt interviewed and examined Ancillary studies reviewed Laboratory Tests 08/06/19 08/06/19 01:07 01:07 BUN 29.6 H Creatinine 1.3 Creatine Kinase 168 Troponin I 0.19 H I agree with plan as outlined by Midlevel Provider Will admit for further management Pt is allergic to ASA, will not give 08/06/19 02:21 Discharge - Discharge Information Problems reviewed: Yes Clinical Impression/Diagnosis: Hypertensive emergency Hematuria Qualifiers: Hematuria type: unspecified type Qualified Code(s): R31.9 - Hematuria, unspecified Condition: Good Disposition: HOME - Admission Yes - Follow up/Referral - Patient Discharge Instructions - Post Discharge Activity
--- NOTE | 2019-08-06 01:09 | PDOC ---
History of Present Illness - General Chief Complaint: Headache Stated Complaint: HEADACHE/HBP Time Seen by Provider: 08/06/19 00:00 History Source: Patient Exam Limitations: Language Barrier ([employer] #[id number]) - History of Present Illness Initial Comments: 08/06/19 00:55 HISTORY OF PRESENT ILLNESS: This is a 54-year-old male past medical history of hypertension who presents the emergency department for evaluation of increased blood pressure and occipital headache over the past 3 days. Patient reports having blurry vision over this time. As well as hematuria and urinary frequency. Patient reports symptoms are in the setting of medication noncompliance over the past 2 to 3 weeks. Patient ran out of his blood pressure medication has not contacted his primary doctor for reevaluation. Patient is unsure who his primary doctor is other than it is "a woman doctor in the [place]." No recent travel or sick contacts. PAST MEDICAL HISTORY: Denies past medical history SURGICAL HISTORY: Denies ALLERGIES: ASA, Motrin REVIEW OF SYSTEMS General/Constitutional: Denies fever or chills. Denies weakness, weight change. HEENT: see HPI Cardiovascular: Denies chest pain or shortness of breath. Respiratory: Denies cough, wheezing, or hemoptysis. Gastrointestinal: Denies nausea, vomiting, diarrhea or constipation. Denies rectal bleeding. Genitourinary: see HPI Musculoskeletal: Denies joint or muscle swelling or pain. Denies neck or back pain. Skin and breasts: Denies rash or easy bruising. Neurologic: see HPI Psychiatric: Denies depression or anxiety. Endocrine: Denies increased thirst. Denies abnormal weight change. Hematologic/Lymphatic: Denies anemia, easy bleeding, or history of blood clots. Allergic/Immunologic: Denies hives or skin allergy. Denies latex allergy. PHYSICAL EXAM General Appearance: Well-appearing, appropriately dressed. No apparent distress , no intoxication. HEENT: EOMI, PERRLA, normal ENT inspection, normal voice, TMs normal, pharynx normal. No conjunctival pallor. No photophobia, scleral icterus. No diplopia noted. Confrontation testing is within normal limits. Neck: Supple. Trachea midline. No tenderness, rigidity, carotid bruit, stridor , lymphadenopathy, or thyromegaly. Respiratory/Chest: Lungs CTAB. No shortness of breath, chest tenderness, respiratory distress, accessory muscle use. No crackles, rales, rhonchi, stridor , wheezing, dullness Cardiovascular: RRR. S1, S2. No JVD, murmur, bradycardia, tachycardia. Vascular Pulses: Dorsalis-Pedis (R): 2+, Dorsalis-Pedis (L): 2+ Gastrointestinal/Abdominal: Normal bowel sounds. Abdomen soft, non-distended. No tenderness or rebound tenderness. No organomegaly, pulsatile mass, guarding, hernia, hepatomegaly, splenomegaly. Lymphatic: No adenopathy, tenderness. Musculoskeletal/Extremities: Normal inspection. FROM of all extremities, normal capillary refill. Pelvis Stable. No CVA tenderness. No tenderness to extremities, pedal edema, swelling, erythema or deformity. Integumentary: Appropriate color, dry, warm. No cyanosis, erythema, jaundice or rash Neurologic: community health program coordinator II-XII intact. Fully oriented, alert. Appropriate mood/affect. Motor strength 5/5. No appreciable EOM palsy, facial droop or sensory deficit. Gait steady. Negative Romberg. 08/06/19 01:14 Past History - Past Medical History Allergies/Adverse Reactions: Allergies Allergy/AdvReac Type Severity Reaction Status Date / Time aspirin Allergy unknown Verified 08/05/19 22:54 Home Medications: Ambulatory Orders Blood Pressure Test Kit-Wrist [Blood Pressure Kit] 1 each MC DAILY #1 kit Carvedilol [Coreg -] 6.25 mg PO BID #60 tablet 08/06/19 Carvedilol [Coreg -] 6.25 mg PO BID #60 tablet 08/06/19 Losartan 50Mg/Hctz 12.5MG [Hyzaar -] 1 tab PO DAILY #30 tablet 08/06/19 Asthma: No Cancer: No CVA: No COPD: No Dementia: No Diabetes: No HTN: Yes Hypercholesterolemia: Yes Liver Disease: No Seizures: No - Surgical History Appendectomy: Yes Cardiac Surgery: No Cholecystectomy: Yes - Immunization History Immunization Up to Date: Yes - Psycho Social/Smoking Cessation Hx Smoking History: Never smoked Have you smoked in the past 12 months: No Information on smoking cessation initiated: No Hx Alcohol Use: No Drug/Substance Use Hx: No *Physical Exam - Vital Signs Last Vital Signs Temp Pulse Resp BP Pulse Ox 98.2 F 82 16 210/90 H 96 08/05/19 22:54 08/05/19 22:54 08/05/19 22:54 08/05/19 22:54 08/05/19 22:54 ED Treatment Course - LABORATORY CBC & Chemistry Diagram: 08/06/19 01:07 08/06/19 06:36 - RADIOLOGY Radiology Studies Ordered: Category Date Time Status HEAD CT WITHOUT CONTRAST [CT] Stat CT Scan 08/06/19 00:12 Ordered CHEST PA & LAT [RAD] Stat Radiology 08/06/19 00:10 Ordered Medical Decision Making - Medical Decision Making 08/06/19 01:09 A/P: 54-year-old male with headache, blurry vision, hematuria and urinary frequency in the setting of medication noncompliance for 2 to 3 weeks Differential diagnosis includes but is not limited to ICH, hypertensive emergency, renal infarct, renal failure Patient has no flank pain renal infarct is less likely. Labs including cardiac profile CTH EKG CXR Urinalysis Labetalol 20 mg IV push Likely admission for hypertensive urgency 08/06/19 01:44 Patient signed out to MD Montelongo for continued evaluation Discharge - Discharge Information Problems reviewed: Yes Clinical Impression/Diagnosis: Hypertensive emergency Hematuria Qualifiers: Hematuria type: unspecified type Qualified Code(s): R31.9 - Hematuria, unspecified Condition: Good - Follow up/Referral - Patient Discharge Instructions - Post Discharge Activity
[2019-08-06 01:18] LABS: BASO % 0.6 % (0-2.0); EOS % 1.4 % (0-4.5); HEMATOCRIT 42.9 % (35.4-49); HEMOGLOBIN 14.2 GM/dL (11.7-16.9); LYMPH % 28.5 % (8-40); MCHC 33.1 g/dl (32.0-35.9); MEAN CELL VOLUME 81.6 fl (80-96); MEAN PLT VOLUME 8.8 fl (7.5-11.1); MONO % 7.3 % (3.8-10.2); NEUT % 62.2 % (42.8-82.8); PLATELET COUNT 111 K/MM3 (134-434); RBC 5.26 M/mm3 (4.00-5.60); RDW 14.2 % (11.9-15.9); WHITE BLOOD COUNT 6.5 K/mm3 (4.0-10.0)
[2019-08-06 01:31] LABS: INR 0.97 (0.83-1.09); PROTHROMBIN TIME (PATIENT) 11.4 SEC (9.7-13.0)
[2019-08-06] MEDS ORDERED: LABETALOL HCL 5 MG/1 ML (200MG/40ML VIAL) IVPB ONE (01:31)
--- NOTE | 2019-08-06 01:42 | PDOC ---
*Physical Exam - Vital Signs Last Vital Signs Temp Pulse Resp BP Pulse Ox 98.2 F 82 16 210/90 H 96 08/05/19 22:54 08/05/19 22:54 08/05/19 22:54 08/05/19 22:54 08/05/19 22:54 ED Treatment Course - LABORATORY CBC & Chemistry Diagram: 08/06/19 01:07 08/06/19 01:07 - ADDITIONAL ORDERS Additional order review: Laboratory Results 08/06/19 01:07 PT with INR 11.40 INR 0.97 08/06/19 01:07 RBC 5.26 MCV 81.6 MCHC 33.1 RDW 14.2 MPV 8.8 Neutrophils % 62.2 Lymphocytes % 28.5 Monocytes % 7.3 Eosinophils % 1.4 Basophils % 0.6 Medical Decision Making - Medical Decision Making 08/06/19 01:41 CBC CMP normal trop 0.19 - held aspirin bc denies chest pain/SOB, and severe allergy (eye, throat swelling) EKg shows NSR, LVH, HR 73, QTc 467, no ST changes given 20 labetalol for HTN, tylenol for headache Head CT did not show acute bleed/infarct/fracture CXR shows clear lung andrade Pending UA --- Signout from Damion Duran NP Bryant Jung is a 54yM w PMHx uncontrolled HTN presenting with headache, blurry vision, hematuria and urinary frequency d/t medication noncompliance for 2 to 3 weeks. Has elevated trop 0.19 - held aspirin bc denies chest pain/SOB, and severe allergy (eye, throat swelling). Head CT did not show acute bleed/infarct/fracture. 1st BP 210/90 - given 20 labetalol brought down to 151/72, tylenol for headache. Pending UA, no evidence of kidney injury. No evidence of lung infection on CXR Admit for hypertensive emergency w elevated trop, hematuria Discharge - Discharge Information Problems reviewed: Yes Clinical Impression/Diagnosis: Hypertensive emergency Hematuria Qualifiers: Hematuria type: unspecified type Qualified Code(s): R31.9 - Hematuria, unspecified Condition: Good - Follow up/Referral - Patient Discharge Instructions - Post Discharge Activity
[2019-08-06 01:44] LABS: ALBUMIN 3.9 g/dl (3.4-5.0); BILIRUBIN,TOTAL 0.3 mg/dL (0.2-1); BLOOD UREA NITROGEN 29.6 mg/dL (7-18); CREATININE 1.3 mg/dL (0.55-1.3); MAGNESIUM 2.3 mg/dL (1.8-2.4); POTASSIUM 3.7 mmol/L (3.5-5.1); TOT PROT 7.2 g/dl (6.4-8.2)
[2019-08-06] MEDS ORDERED: ACETAMINOPHEN 1000 MG/100 ML VIAL (NON FORMULARY) IVPB ONE (02:50)
[2019-08-06] MEDS ORDERED: ACETAMINOPHEN INJECTION 100 ML IVPB ONE (03:23)
[2019-08-06 04:14] LABS: EPI CELLS 0.5 /HPF (0-5/HPF); HYALINE CASTS 0 /lpf (0-8); URINE APPEARANCE CLEAR; URINE BACTERIA 0.7 /hpf (NEGATIVE); URINE BILIRUBIN NEGATIVE (NEGATIVE); URINE COLOR YELLOW; URINE GLUCOSE (UA) NEGATIVE (NEGATIVE); URINE KETONE NEGATIVE (NEGATIVE); URINE LEUK ESTERASE NEGATIVE (NEGATIVE); URINE NITRITE NEGATIVE (NEGATIVE); URINE PROTEIN 2+ (NEGATIVE); URINE RBC 1 /hpf (0-4); URINE UROBILINOGEN 0.2 mg/dL (0.2-1.0); URINE WBC 1 /hpf (0-5)
--- NOTE | 2019-08-06 04:36 | PN ---
Teaching Attending Note Name of Resident: Jason Garcia ATTENDING PHYSICIAN STATEMENT I saw and evaluated the patient. I reviewed the resident's note and discussed the case with the resident. I agree with the resident's findings and plan as documented. SUBJECTIVE: Patient is a 54 year old man with PMH of Uncontrolled HTN, HLD, Aspirin allergy and Nonadherence who present with increased blood pressure and occipital headache over the past 3 days. Patient reports having blurry vision over this time as well as hematuria and urinary frequency. Has been off his antihypertensive medications for 2 to 3 weeks. Patient denies chest pain, SOB, nausea, vomiting or diarrhea. Patient denies sick contacts or recent travel. Nonsmoker and denies alcohol and iliicit drug use. Has FH of DM and CAD. Does have health insurance to get his medications. OBJECTIVE: Alert Vital Signs Period Temp Pulse Resp BP Sys/Arias Pulse Ox Last 24 Hr 98.0 F-98.2 F 75-82 16-17 151-210/72-90 96-98 HEENT: No Jaundice, eye redness or discharge, PERRLA, EOMI. Normocephalic, atraumatic. External ears are normal and hearing is grossly intact. No nasal discharge. Neck: Supple, nontender. No palpable adenopathy or thyromegaly. No JVD Chest: Good effort. Clear to auscultation and percussion. Heart: Regular. No S3, rub or murmur Abdomen: Not distended, soft, nontender and no HSM. No rebound or guarding. Normal bowel sounds. Ext: Peripheral pulses intact. No leg edema. Skin: Warm and dry. No petechiae, rash or ecchymosis. Neuro: Alert. Oriented x3. CN 2-12 grossly intact. Sensation grossly intact in all four extremities and DTR are symmetric. Psych: Appropriate mood and affect. Good insight. Home Medications Medication Instructions Recorded Losartan 50Mg/Hctz 12.5MG [Hyzaar 1 tab PO DAILY 11/18/18 -] Carvedilol [Coreg -] 6.25 mg PO BID #60 tablet 11/20/18 Abnormal Lab Results 08/06/19 08/06/19 08/06/19 01:07 01:07 01:07 Plt Count 111 L Chloride 108 H Anion Gap 4 L BUN 29.6 H Troponin I 0.19 H Urine Protein 08/06/19 03:30 Plt Count Chloride Anion Gap BUN Troponin I Urine Protein 2+ H ASSESSMENT AND PLAN: 1. Hypertensive emergency - Likely due to nonadherence with drug regimen. Initial BP was 210/90 and after 20 mg IV Labetalol it came down to 151/72. He got Tylenol for headache. No acute abnormality on head CT and CXR shows cardiomegaly but no infiltrates. Low platelet count may be due to hypertensive emergency - will monitor closely. Will repeat UA and if proteinuria persists, will do nephrologic workup. Has had intermittent hematuria for weeks. Get kidney / bladder sonogram, consult Urology and Nephrology. Will restart suitable outpatient antihypertensive drugs when clinically appropriate an add HCTZ 12.5 mg qd. Revise regimen to ensure [id number] excellent BP control and debt management counselor patient on the injurious effects of uncontrolled hypertension. Nonpharmacologic measures to control hypertension like weight loss, salt restriction and exercise discussed. Importance of adherence to treatment regimen and attainment of normotension emphasized. Troponin is elevated but initial EKG didnot show any new significant ST-T wave changes: has chronic T wave inversion in V5 and V6. Will admit to telemetry to rule out ACS and get ECHO. Will continue comprehensive care for all of patient s comorbid conditions. 2. Overweight Counseled on the risks associated with being overweight. Will provide patient all the necessary assistance, counseling and positive reinforcement to facilitate weight loss. Consult poultry picker. 3. DVT prophylaxis - Lovenox 40 mg SQ q 24 hours. 4. Advance directives - Full code
--- NOTE | 2019-08-06 05:41 | HP ---
CHIEF COMPLAINT: PCP: unknown HISTORY OF PRESENT ILLNESS: 54 y/o Micronesian speaking male with PMHx of HTN here for chest pain and headache x3 days. Patient states that he ran out of his HTN medications 8 days ago and has not called his doctor to renew his medications. He states the chest pain is intermittent, nor worse with activity or food, can not describe how it feels, and he does not currently have any chest pain. He does currently have a headache. She states the headache has been constant, is in the back of his head , and occasionally has blurry vision associated with the headache. The headache feels similar to the past when he has had elevated blood pressures. He also complains of painless hematuria that he has had for the last month. He states the hematuria is intermittent but he has it everyday. He also complains of urinary frequency and has to wake up 5-6 times at night to go to the bathroom. He denies any abd pain, N/V/D, fevers, constipation, cough, numbness, tingling. ER course was notable for: (1) Initial BP of 210/90 -> went down to 151/72 after one dose of Labetalol 20mg (2) EKG with NSR, no acute ischemic changes noted. (3) Trop of 0.19 PAST MEDICAL HISTORY: HTN PAST SURGICAL HISTORY: denies Social History: Smoking: denies Alcohol: socially Drugs: denies Allergies aspirin Allergy - eyes swell up and throat starts to itch (Verified 08/05/19 22: 54) HOME MEDICATIONS: Home Medications Medication Instructions Recorded Losartan 50Mg/Hctz 12.5MG [Hyzaar 1 tab PO DAILY 11/18/18 -] Carvedilol [Coreg -] 6.25 mg PO BID #60 tablet 11/20/18 REVIEW OF SYSTEMS HEENT: intermittent blurry vision. denies sore throat, congestion Cardio: chest pain. denies palpitations, lightheadedness Resp: denies SOB, wheezing GI: denies vomiting, diarrhea, constipation, nausea : hematuria, urinary frequency. denies dysuria MSK: denies neck pain, back pain, joint pain SKIN: bruising of left knee. denies abrasions Neuro: headache. denies loss of consciousness, numbness, tingling, weakness PHYSICAL EXAMINATION Vital Signs - 24 hr 08/05/19 08/06/19 22:54 04:26 Temperature 98.2 F 98.0 F Pulse Rate 82 Pulse Rate [ 75 Right] Respiratory 16 17 Rate Blood Pressure 210/90 H Blood Pressure 151/72 [Left Arm] O2 Sat by Pulse 96 98 Oximetry (%) GENERAL: Awake, alert, and fully oriented, in no acute distress. HEAD: Normal with no signs of trauma. EYES: Pupils equal, round and reactive to light, extraocular movements intact, sclera anicteric, conjunctiva clear. No lid lag. EARS, NOSE, THROAT: Ears normal, nares patent, oropharynx clear without exudates. Moist mucous membranes. NECK: Normal range of motion, supple without lymphadenopathy, JVD, or masses. LUNGS: Breath sounds equal, clear to auscultation bilaterally. No wheezes, and no crackles. No accessory muscle use. HEART: Regular rate and rhythm, normal S1 and S2 without murmur, rub or gallop. ABDOMEN: Soft, nontender, not distended, normoactive bowel sounds, no guarding, no rebound, no masses. MUSCULOSKELETAL: Normal range of motion at all joints. No bony deformities or tenderness. No CVA tenderness. UPPER EXTREMITIES: 2+ pulses, warm, well-perfused. No cyanosis. No clubbing. No peripheral edema. LOWER EXTREMITIES: 2+ pulses, warm, well-perfused. No calf tenderness. No peripheral edema. NEUROLOGICAL: Cranial nerves II-XII intact. Normal speech. 5/5 strength upper and lower extremities. PSYCHIATRIC: Cooperative. Good eye contact. Appropriate mood and affect. SKIN: Warm, dry, normal turgor, no rashes or lesions noted, normal capillary refill. Laboratory Results - last 24 hr 08/06/19 08/06/19 08/06/19 01:07 01:07 01:07 WBC 6.5 RBC 5.26 Hgb 14.2 Hct 42.9 MCV 81.6 MCH 27.0 MCHC 33.1 RDW 14.2 Plt Count 111 L MPV 8.8 Absolute Neuts (auto) 4.1 Neutrophils % 62.2 Lymphocytes % 28.5 Monocytes % 7.3 Eosinophils % 1.4 Basophils % 0.6 Nucleated RBC % 0 PT with INR INR Sodium 142 Potassium 3.7 Chloride 108 H Carbon Dioxide 30 Anion Gap 4 L BUN 29.6 H Creatinine 1.3 Est GFR (CKD-EPI)AfAm 71.19 Est GFR (CKD-EPI)NonAf 61.43 Random Glucose 90 Calcium 9.0 Magnesium 2.3 Total Bilirubin 0.3 AST 26 ALT 43 Alkaline Phosphatase 93 Creatine Kinase 168 Creatine Kinase Index 0.6 CK-MB (CK-2) 1.1 Troponin I 0.19 H Total Protein 7.2 Albumin 3.9 Urine Color Urine Appearance Urine pH Ur Specific [place] Urine Protein Urine Glucose (UA) Urine Ketones Urine Blood Urine Nitrite Urine Bilirubin Urine Urobilinogen Ur Leukocyte Esterase Urine WBC (Auto) Urine RBC (Auto) Urine Casts (Auto) U Epithel Cells (Auto) Urine Bacteria (Auto) 08/06/19 08/06/19 01:07 03:30 WBC RBC Hgb Hct MCV MCH MCHC RDW Plt Count MPV Absolute Neuts (auto) Neutrophils % Lymphocytes % Monocytes % Eosinophils % Basophils % Nucleated RBC % PT with INR 11.40 INR 0.97 Sodium Potassium Chloride Carbon Dioxide Anion Gap BUN Creatinine Est GFR (CKD-EPI)AfAm Est GFR (CKD-EPI)NonAf Random Glucose Calcium Magnesium Total Bilirubin AST ALT Alkaline Phosphatase Creatine Kinase Creatine Kinase Index CK-MB (CK-2) Troponin I Total Protein Albumin Urine Color Yellow Urine Appearance Clear Urine pH 6.0 Ur Specific [place] 1.022 Urine Protein 2+ H Urine Glucose (UA) Negative Urine Ketones Negative Urine Blood Negative Urine Nitrite Negative Urine Bilirubin Negative Urine Urobilinogen 0.2 Ur Leukocyte Esterase Negative Urine WBC (Auto) 1 Urine RBC (Auto) 1 Urine Casts (Auto) 0 U Epithel Cells (Auto) 0.5 Urine Bacteria (Auto) 0.7 Imaging: CT head - negative for acute pathology CXR - negative for acute pathology ASSESSMENT/PLAN: 54 y/o Micronesian speaking male with PMHx of HTN here for chest pain and headache x3 days after not taking his HTN medications for 8 days. 1)Hypertensive emergency - patient with history of HTN, not taking medication for 8 days -Initial trop elevated 0.19 - trend trops -Labetalol 20mg given in ED with improvement of BP -continue home meds 2)Hematuria - patient with 1 month hx of painless hematuria -UA negative for blood, positive for 2+ protein -repeat UA -Kidney/Bladder U/S -Urology consulted, Dr. Sesay -may consider cystoscopy -BUN elevated -IVF 3)Prophylaxis -Heparin 4)FEN -NS @ 75mls/hr 5)Dispo -admitted to tele Visit type - Emergency Visit Emergency Visit: Yes ED Registration Date: 08/06/19 Care time: The patient presented to the Emergency Department on the above date and was hospitalized for further evaluation of their emergent condition. - New Patient This patient is new to me today: Yes Date on this admission: 08/06/19 - Critical Care Critical Care patient: No ATTENDING PHYSICIAN STATEMENT I saw and evaluated the patient. I reviewed the resident's note and discussed the case with the resident. I agree with the resident's findings and plan as documented. SUBJECTIVE: OBJECTIVE: ASSESSMENT AND PLAN:
[2019-08-06] MEDS ORDERED: SODIUM CHLORIDE 1,000 ML IV SCH (05:45)
[2019-08-06] MEDS: HEPARIN NA (PORCINE) 5,000 UNITS/ML 1ML VIAL SQ SCH ×2 (06:20→15:28)
[2019-08-06 07:16] LABS: BLOOD UREA NITROGEN 27.4 mg/dL (7-18); CALCIUM 8.5 mg/dL (8.5-10.1); CREATININE 1.2 mg/dL (0.55-1.3); POTASSIUM 3.3 mmol/L (3.5-5.1)
[2019-08-06] MEDS ORDERED: LOSARTAN 50MG/HCTZ 12.5MG 1 TAB (FP) PO SCH (10:00)
[2019-08-06] MEDS ORDERED: CARVEDILOL 6.25 MG TABLET (FP) PO SCH (10:00)
--- NOTE | 2019-08-06 10:47 | ECHO ---
Name: KARI GRIDER Exam:Adult Echocardiogram Study Date: 08/06/2019 10:00 AM Age: 54 yrs Reason For Study: EVALUATE CARDIAC FUNCTION Height: 64 in Weight: 170 lb BSA: 1.8 m2 MMode/2D Measurements & Calculations IVSd: 1.3 cm Ao root diam: 3.4 cm LVIDd: 4.9 cm LA dimension: 3.8 cm LVIDs: 3.4 cm LVPWd: 1.3 cm LVPWs: 2.0 cm EDV(Blairich): 115.4 ml ESV(Romi): 48.9 ml desc Ao Diam: 2.4 cm LVOT diam: 2.1 cm LVLd ap4: 7.8 cm SV(MOD-sp4): 74.0 ml EDV(MOD-sp4): 152.0 ml LVLs ap4: 7.0 cm ESV(MOD-sp4): 78.0 ml Doppler Measurements & Calculations MV E max jean-pierre: 56.3 cm/sec Ao V2 max: 131.1 cm/sec MV A max jean-pierre: 52.8 cm/sec Ao max P.0 mmHg MV E/A: 1.1 Ao V2 mean: 92.3 cm/sec MV dec time: 0.19 sec Ao mean P.0 mmHg Ao V2 VTI: 26.9 cm TATI(I,D): 2.8 cm2 AI P1/2t: 481.3 msec TATI(V,D): 3.1 cm2 AI max jean-pierre: 278.9 cm/sec LV V1 max P.0 mmHg AI max P.8 mmHg LV V1 mean P.5 mmHg AI dec slope: 169.7 cm/sec2 LV V1 max: 112.0 cm/sec LV V1 mean: 69.4 cm/sec LV V1 VTI: 21.0 cm SV(LVOT): 75.8 ml PA V2 max: 88.2 cm/sec PA max P.1 mmHg Med Peak E' Jean-Pierre: 4.5 cm/sec Med E/e': 12.5 Lat Peak E' Jean-Pierre: 5.0 cm/sec Lat E/e': 11.2 Left Ventricle There is mild concentric left ventricular hypertrophy. Ejection Fraction = 50-55%. The transmitral sp ectral Doppler flow pattern is suggestive of impaired LV relaxation. Right Ventricle The right ventricle is grossly normal size. The right ventricular systolic function is normal. Atria Normal left and right atrial size and function. Mitral Valve The mitral valve is normal in structure and function. There is no mitral valve stenosis. There is no mitral regurgitation noted. Tricuspid Valve The tricuspid valve is normal in structure and function. There is Trace to mild tricuspid regurgitati on. Right ventricular systolic pressure is normal. Aortic Valve There is mild aortic sclerosis.;. No hemodynamically significant valvular aortic stenosis. Mild aorti c regurgitation. Pulmonic Valve The pulmonic valve is not well seen, but is grossly normal. There is no pulmonic valvular stenosis. Great Vessels The aortic root is normal size. Pericardium/Pleura There is no pericardial effusion. Interpretation Summary There is mild concentric left ventricular hypertrophy. Ejection Fraction = 50-55%. The transmitral spectral Doppler flow pattern is suggestive of impaired LV relaxation. The right ventricle is grossly normal size. The right ventricular systolic function is normal. There is Trace to mild tricuspid regurgitation. There is mild aortic sclerosis.; Mild aortic regurgitation. There is no pericardial effusion. MD Parvez Maddox 08/06/2019 10:47 AM
[2019-08-06] MEDS ORDERED: HYDROCHLOROTHIAZIDE 12.5 MG CAPSULE (FP) PO SCH (11:00)
--- NOTE | 2019-08-06 12:29 | CON.CARD ---
Consult Consult Specialty:: Cardiology Referred by:: Hospitalist Medicine Reason for Consultation:: Hypertensive urgency - History of Present Illness Chief Complaint: Headache History of Present Illness: The patient is a 54 year old M with a significant PMH of HTN who presents to the emergency department with occipital headache last 3 days and chest pain since last night. Patient states he has had prior visits to the ER for poorly controlled HTN with similar symptoms as he presents today. Patient states he typically gets headaches with associated chest pressure when his blood pressure is elevated. Patient describes the chest pain as mild and intermittent with associated tachycardia and palpitations. Patient is still complaining of a mild headache, but denies any chest pain, leg swelling, shortness of breath, near or true syncope, orthopnea, PND or LE edema. He last saw direct support specialist 11/04/2018 for similar symptoms. Ran out of antihypertensive agents 2 weeks ago. Allergies: ASA, Motrin->facial swelling Past surgical history: None reported. Social history: No reported alcohol, drug or cigarette use Float Remover: Henry Cortes MD at [facility] last visit 4 months ago, stress test and echo reportedly normal - History Source History Provided By: Family Member Limitations to Obtaining History: Language Barrier - Past Medical History Cardio/Vascular: Yes: HTN - Alcohol/Substance Use Hx Alcohol Use: No - Smoking History Smoking history: Never smoked Have you smoked in the past 12 months: No Home Medications - Allergies Allergies/Adverse Reactions: Allergies Allergy/AdvReac Type Severity Reaction Status Date / Time aspirin Allergy unknown Verified 08/05/19 22:54 - Home Medications Home Medications: Ambulatory Orders Blood Pressure Test Kit-Wrist [Blood Pressure Kit] 1 each MC DAILY #1 kit Carvedilol [Coreg -] 6.25 mg PO BID #60 tablet 08/06/19 Carvedilol [Coreg -] 6.25 mg PO BID #60 tablet 08/06/19 Losartan 50Mg/Hctz 12.5MG [Hyzaar -] 1 tab PO DAILY #30 tablet 08/06/19 Review of Systems - Review of Systems Cardiovascular: reports: Chest Pain Neurological: reports: Headache Vital Signs: Vital Signs Temperature 98.1 F 08/06/19 07:46 Pulse Rate 72 08/06/19 10:45 Respiratory Rate 17 08/06/19 10:45 Blood Pressure 179/91 H 08/06/19 10:45 O2 Sat by Pulse Oximetry (%) 97 08/06/19 10:45 Constitutional: Yes: No Distress, Calm Neck: Yes: Supple Respiratory: Yes: Regular, CTA Bilaterally Gastrointestinal: Yes: Normal Bowel Sounds, Soft Cardiovascular: Yes: Regular Rate and Rhythm JVD: No Carotid Bruit: No Heart Sounds: Yes: S1, S2 Edema: No - Other Data Labs, Other Data: CBC, BMP 08/06/19 01:07 08/06/19 06:36 INR, PTT INR 0.97 (0.83-1.09) 08/06/19 01:07 Troponin, BNP 08/06/19 08/06/19 01:07 06:36 Troponin I 0.19 H 0.20 H Troponin, BNP 08/06/19 08/06/19 01:07 06:36 Troponin I 0.19 H 0.20 H Imaging - Results Chest X-ray: Report Reviewed (NAD) Cat Scan: Report Reviewed (HCT: No acute changes) Ultrasound: Report Reviewed (No hydro) Problem List - Problems (1) Chest pain Code(s): R07.9 - CHEST PAIN, UNSPECIFIED Qualifiers: Chest pain type: other chest pain Qualified Code(s): R07.89 - Other chest pain; R07.8 - Other chest pain (2) Headache Code(s): R51 - HEADACHE Qualifiers: Headache type: unspecified Headache chronicity pattern: acute headache (3) Hypertensive encephalopathy Code(s): I67.4 - HYPERTENSIVE ENCEPHALOPATHY (4) Hypertensive heart disease Code(s): I11.9 - HYPERTENSIVE HEART DISEASE WITHOUT HEART FAILURE Qualifiers: Heart failure presence: without heart failure Qualified Code(s): I11.9 - Hypertensive heart disease without heart failure (5) Subendocardial ischemia Code(s): I24.8 - OTHER FORMS OF ACUTE ISCHEMIC HEART DISEASE Assessment/Plan Wcho: 08/06/2019 Mild cLVH low normal LVEF 50-55%, impaired LV compliance, normal RV size and fxn, tr-mild TR, mild AR, no pericardial effusion Echo: 11/04/2018 Mod cLVH and borderline normal LV systolic function LVEF 50-55% , mild MR, TR, AR 1. Hypertensive urgency, heart disease with encephelopathy resolving 2. Palpitations w/o events on telemetry 3. Diastolic dysfunction with subendocardial ischemia 4. Hematuria 5. ASA allergy->facial swelling P:1. Trops have plateaued, telemetry w/o arrhythmia, replete K 2. Resume carvedilol 6.25 bid and Hyzaar 50/12.5 qd with uptitration as tolerated, emphasized importance of diet and medication compliance 3. May d/c home with f/u with Dr. Henry Cortes, previously underwent stress echo to exclude ischemia and holter monitoring to assess arrhythmia burden as outpatient 4. Thank you for consultative opportunity
[2019-08-06] MEDS ORDERED: POTASSIUM CHLORIDE TABS 20 MEQ TABLET.ER (FP) PO ONE ×2 (14:16→15:19)
--- NOTE | 2019-08-06 14:26 | EKG ---
Test Reason : Blood Pressure : / mmHG Vent. Rate : 073 BPM Atrial Rate : 073 BPM P-R Int : 182 ms QRS Dur : 102 ms QT Int : 424 ms P-R-T Axes : 061 033 034 degrees QTc Int : 467 ms NORMAL SINUS RHYTHM POSSIBLE LEFT ATRIAL ENLARGEMENT LEFT VENTRICULAR HYPERTROPHY NONSPECIFIC T WAVE ABNORMALITY PROLONGED QT ABNORMAL ECG WHEN COMPARED WITH ECG OF 18-NOV-2018 13:26, NONSPECIFIC T WAVE ABNORMALITY HAS REPLACED INVERTED T WAVES IN INFERIOR LEADS Confirmed by RENETTA FOSTER MD ([id number]) on 08/06/2019 2:25:56 PM Referred By: Confirmed By:RENETTA FOSTER MD
--- NOTE | 2019-08-06 16:12 | DS ---
Physical Exam: SUBJECTIVE: Patient seen and examined at the bedside. denies chest pain, no shortness of breath. did not get him cardiac medications because he ran out and did not have any refills. called 30 days supply for him to [facility] at [facility] per his request. he and daughter will f/u with radiological equipment specialist and urologist as an outpatient. OBJECTIVE: Patient is a 54 y/o [place] speaking male with PMHx of HTN here for chest pain and headache x 3 days. Patient states that he ran out of his HTN medications 8 days ago and has not called his doctor to renew his medications. He had chest pain and headaches when admitted, now both resolved. He is willing to follow up with urology as an outpatient. He is willing to see his radiological equipment specialist next week. Daughter to call for an appointment UA is negative and kidney u/s unremarkable, small cyst only seen. Cleared by cardiology for outpatient follow up Vital Signs Period Temp Pulse Resp BP Sys/Arias Pulse Ox Last 24 Hr 98.0 F-98.2 F 65-82 16-18 151-210/72-99 96-98 PHYSICAL EXAM GENERAL: The patient is awake, alert, and fully oriented, in no acute distress. HEAD: Normal with no signs of trauma. EYES: PERRL, extraocular movements intact, sclera anicteric, conjunctiva clear. ENT: Ears normal, nares patent, oropharynx clear without exudates, moist mucous membranes. NECK: Trachea midline, full range of motion, supple. LUNGS: Breath sounds equal, clear to auscultation bilaterally, no wheezes, no crackles, no accessory muscle use. HEART: Regular rate and rhythm, S1, S2 without murmur, rub or gallop. ABDOMEN: Soft, nontender, nondistended, normoactive bowel sounds, no guarding, no rebound, no hepatosplenomegaly, no masses. EXTREMITIES: 2+ pulses, warm, well-perfused, no edema. NEUROLOGICAL: Cranial nerves II through XII grossly intact. Normal speech, gait not observed. PSYCH: Normal mood, normal affect. SKIN: Warm, dry, normal turgor, no rashes or lesions noted. LABS Laboratory Results - last 24 hr 08/06/19 08/06/19 08/06/19 01:07 01:07 01:07 WBC 6.5 RBC 5.26 Hgb 14.2 Hct 42.9 MCV 81.6 MCH 27.0 MCHC 33.1 RDW 14.2 Plt Count 111 L MPV 8.8 Absolute Neuts (auto) 4.1 Neutrophils % 62.2 Lymphocytes % 28.5 Monocytes % 7.3 Eosinophils % 1.4 Basophils % 0.6 Nucleated RBC % 0 PT with INR INR Sodium 142 Potassium 3.7 Chloride 108 H Carbon Dioxide 30 Anion Gap 4 L BUN 29.6 H Creatinine 1.3 Est GFR (CKD-EPI)AfAm 71.19 Est GFR (CKD-EPI)NonAf 61.43 Random Glucose 90 Calcium 9.0 Magnesium 2.3 Total Bilirubin 0.3 AST 26 ALT 43 Alkaline Phosphatase 93 Creatine Kinase 168 Creatine Kinase Index 0.6 CK-MB (CK-2) 1.1 Troponin I 0.19 H Total Protein 7.2 Albumin 3.9 Urine Color Urine Appearance Urine pH Ur Specific [place] Urine Protein Urine Glucose (UA) Urine Ketones Urine Blood Urine Nitrite Urine Bilirubin Urine Urobilinogen Ur Leukocyte Esterase Urine WBC (Auto) Urine RBC (Auto) Urine Casts (Auto) U Epithel Cells (Auto) Urine Bacteria (Auto) 08/06/19 08/06/19 08/06/19 01:07 03:30 06:36 WBC RBC Hgb Hct MCV MCH MCHC RDW Plt Count MPV Absolute Neuts (auto) Neutrophils % Lymphocytes % Monocytes % Eosinophils % Basophils % Nucleated RBC % PT with INR 11.40 INR 0.97 Sodium 142 Potassium 3.3 L Chloride 108 H Carbon Dioxide 27 Anion Gap 7 L BUN 27.4 H Creatinine 1.2 Est GFR (CKD-EPI)AfAm 78.43 Est GFR (CKD-EPI)NonAf 67.67 Random Glucose 103 Calcium 8.5 Magnesium Total Bilirubin AST ALT Alkaline Phosphatase Creatine Kinase 130 Creatine Kinase Index CK-MB (CK-2) Troponin I 0.20 H Total Protein Albumin Urine Color Yellow Urine Appearance Clear Urine pH 6.0 Ur Specific [place] 1.022 Urine Protein 2+ H Urine Glucose (UA) Negative Urine Ketones Negative Urine Blood Negative Urine Nitrite Negative Urine Bilirubin Negative Urine Urobilinogen 0.2 Ur Leukocyte Esterase Negative Urine WBC (Auto) 1 Urine RBC (Auto) 1 Urine Casts (Auto) 0 U Epithel Cells (Auto) 0.5 Urine Bacteria (Auto) 0.7 HOSPITAL COURSE: Date of Admission:08/06/19 Date of Discharge: 08/06/19 Minutes to complete discharge: 45 Discharge Summary Problems reviewed: Yes Reason For Visit: HYPERTENSIVE EMERGENCY,HEMATURIA Current Active Problems Hematuria (Acute) Hypertensive emergency (Acute) Condition: Good - Instructions Diet, Activity, Other Instructions: Please follow up with your radiological equipment specialist: new medications: Hyzaar (combo pill with Losartan 50mg and HCTZ 12.5mg). This medication is for your BP control Coreq 6.25mg TWICE per day at 8am and 8pm Monitor your BP every morning and record the reading. Please take this to your PCP or radiological equipment specialist. Thank you for allowing us to care for you. Referrals: ON STAFF,NOT [Non Staff, Medical] - Damion Sesay MD [Staff Physician] - Disposition: HOME - Home Medications Comprehensive Discharge Medication List: Ambulatory Orders Blood Pressure Test Kit-Wrist [Blood Pressure Kit] 1 each MC DAILY #1 kit Carvedilol [Coreg -] 6.25 mg PO BID #60 tablet 08/06/19 Carvedilol [Coreg -] 6.25 mg PO BID #60 tablet 08/06/19 Losartan 50Mg/Hctz 12.5MG [Hyzaar -] 1 tab PO DAILY #30 tablet 08/06/19 Problem List - Problems (1) Hematuria Assessment/Plan: patient denies any urinary urgency, frequency at this time. outpatient follow up for prostate workup encouraged. urology information provided on d/c instructions no fevers, UA negative. kidney u/s negative for any acute pathology Code(s): R31.9 - HEMATURIA, UNSPECIFIED Qualifiers: Hematuria type: unspecified type Qualified Code(s): R31.9 - Hematuria, unspecified (2) Hypertensive emergency Assessment/Plan: re start home medications monitor BP at home with home device (called in) cardiology follow up home meds called in educated on importance of medication compliance. Code(s): I16.1 - HYPERTENSIVE EMERGENCY (3) Chest pain Assessment/Plan: resolved trop peaked and not acs per cardiology had recent echo which patient reports was normal f/u with radiological equipment specialist Code(s): R07.9 - CHEST PAIN, UNSPECIFIED Qualifiers: Chest pain type: other chest pain Qualified Code(s): R07.89 - Other chest pain; R07.8 - Other chest pain (4) Hypertension Assessment/Plan: improving, elevated in the setting of non compliance with medications PCP/cardiology follow up Code(s): I10 - ESSENTIAL (PRIMARY) HYPERTENSION Qualifiers: Hypertension type: unspecified Qualified Code(s): I10 - Essential (primary ) hypertension This patient is new to me today: Yes Date on this admission: 08/06/19 Emergency Visit: Yes ED Registration Date: 08/06/19 Care time: The patient presented to the Emergency Department on the above date and was hospitalized for further evaluation of their emergent condition. Critical Care patient: No - Discharge Referral Referred to [facility] Med P.C.: No
[2019-08-06 17:41] VITALS: BP 172/94; PULSE 70; TEMP 98
== END 2019-08-06 17:45 | disposition home or self-care (01) | DRG 52 ==
LOC: JER 22:38 → JERBED 08-06 02:49
PROVIDERS: ADMIT Internal Medicine; ATTEND Nurse Practitioner Family
DX: I67.4 Hypertensive encephalopathy (principal); I16.1 Hypertensive emergency; I24.8 Other forms of acute ischemic heart disease; Z91.14 Patient's other noncompliance with medication regimen; E66.3 Overweight; R31.9 Hematuria, unspecified; R07.89 Other chest pain; I11.9 Hypertensive heart disease without heart failure; R00.2 Palpitations; Z68.29 Body mass index [BMI] 29.0-29.9, adult
CPT/HCPCS: 36415; 70450-TC; 71046-TC-FY; 76775-TC; 80048; 80053; 81003; 82550; 82553; 83735; 84484; 85025; 85610; 93005; 93010; 93306-TC; 99284-25; J0131; J1644; J7030

== ENCOUNTER 2019-11-01 17:38 | Inpatient (IN) | payer OTHER ==
--- NOTE | 2019-11-01 17:50 | PDOC ---
Rapid Medical Evaluation Medical Evaluation: Allergies Allergy/AdvReac Type Severity Reaction Status Date / Time aspirin Allergy unknown Verified 08/05/19 22:54 I have performed a brief in-person evaluation of this patient. The patient presents with a chief complaint of: R sided CP x 2 days, constant in nature; hx of HTN; associated with SOB; not on BP meds x 20 days; +headache; denies vomiting Pertinent physical exam findings: In NAD I have ordered the following: Labs, EKG, CXR The patient will proceed to the ED for further evaluation. 11/01/19 17:47
--- NOTE | 2019-11-01 17:58 | PDOC ---
History of Present Illness - General Chief Complaint: Chest Pain Stated Complaint: CHEST PAINS/HEADACHE Time Seen by Provider: 11/01/19 17:47 - History of Present Illness Initial Comments: 11/01/19 18:13 54 year old man who presents with 3 days of worsening headache, chest pressure after not taking his blood pressure medications for 20 days. The patient reports he was unable to fill his prescription due to the holidays. He notes some blurry vision when his headache gets worse but denies ringing in the ears, nausea, vomiting or lightheadedness. He also reports several weeks of shortness of breath and cough. ROS GENERAL/CONSTITUTIONAL: No fever or chills. No weakness. HEAD, EYES, EARS, NOSE AND THROAT: No change in vision. No ear pain or discharge. No sore throat. CARDIOVASCULAR: No chest pain or shortness of breath RESPIRATORY: No cough, wheezing, or hemoptysis. GASTROINTESTINAL: No nausea, vomiting, diarrhea or constipation. GENITOURINARY: No dysuria, frequency, or change in urination. MUSCULOSKELETAL: No joint or muscle swelling or pain. No neck or back pain. SKIN: No rash NEUROLOGIC: + headache, No vertigo, loss of consciousness, or change in strength /sensation. ENDOCRINE: No increased thirst. No abnormal weight change HEMATOLOGIC/LYMPHATIC: No anemia, easy bleeding, or history of blood clots. PE GENERAL: Awake, alert, and fully oriented, in no acute distress HEAD: No signs of trauma, normocephalic, atraumatic EYES: PERRLA, EOMI, sclera anicteric, conjunctiva clear ENT: oropharynx clear without exudates. Moist mucosa NECK: Normal ROM, supple LUNGS: No distress, speaks full sentences, + coarse breath sounds HEART: Regular rate and rhythm, normal S1 and S2, no murmurs, rubs or gallops, peripheral pulses normal and equal bilaterally. ABDOMEN: Soft, nontender. No guarding, no rebound. No masses EXTREMITIES : Normal inspection, Normal range of motion, no edema. No clubbing or cyanosis. NEUROLOGICAL: Cranial nerves II through XII grossly intact. Normal speech, no focal sensorimotor deficits SKIN: Warm, Dry, normal turgor, no rashes or lesions noted MDM DDX including but not limited to: uncontrolled HTN r/o intracranial pathology r/o acs ED Course: Pharmacy [facility] at [address]: reports home meds of Coreg 6.25 bid and losartan 50 daily Dose home meds as patient with bp 200s/100s EKG: nsr at 87bpm, no interval abnormalities, narrow QRS, Nonspecific T wave abnormalities Will sign out to overnight team. Follow up on labs, cxr, head ct Emily Moore, PGY2 Emergency Medicine Past History - Past Medical History Allergies/Adverse Reactions: Allergies Allergy/AdvReac Type Severity Reaction Status Date / Time aspirin Allergy unknown Verified 11/01/19 17:52 Home Medications: Ambulatory Orders Blood Pressure Test Kit-Wrist [Blood Pressure Kit] 1 each MC DAILY #1 kit Carvedilol [Coreg -] 6.25 mg PO BID #60 tablet 08/06/19 Carvedilol [Coreg -] 6.25 mg PO BID #60 tablet 08/06/19 Losartan 50Mg/Hctz 12.5MG [Hyzaar -] 1 tab PO DAILY #30 tablet 08/06/19 Losartan Potassium 50 mg PO DAILY 30 Days #30 tablet 08/07/19 Asthma: No Cancer: No CVA: No COPD: No Dementia: No Diabetes: No HTN: Yes Hypercholesterolemia: Yes Liver Disease: No Seizures: No - Surgical History Appendectomy: Yes Cardiac Surgery: No Cholecystectomy: Yes - Immunization History Immunization Up to Date: Yes - Psycho Social/Smoking Cessation Hx Smoking History: Never smoked Have you smoked in the past 12 months: No Hx Alcohol Use: Yes Drug/Substance Use Hx: No *Physical Exam - Vital Signs Last Vital Signs Temp Pulse Resp BP Pulse Ox 99.1 F 96 H 16 218/117 H 97 11/01/19 17:47 11/01/19 17:47 11/01/19 17:47 11/01/19 17:47 11/01/19 17:47
[2019-11-01] MEDS ORDERED: LOSARTAN 50MG/HCTZ 12.5MG 1 TAB (FP) PO ONE (18:09)
[2019-11-01] MEDS ORDERED: CARVEDILOL 6.25 MG TABLET (FP) PO ONE (18:09)
--- NOTE | 2019-11-01 18:14 | PDOC ---
Attending Attestation - Resident Resident Name: Emily Moore - ED Attending Attestation I have performed the following: I have examined & evaluated the patient, The case was reviewed & discussed with the resident, I agree w/resident's findings & plan, Exceptions are as noted - HPI HPI: 11/01/19 18:13 54y M hx of htn, presenst with chest pain, cough, headache. Pt states that he has been off his htn meds for approx 2 weeks due to his rx ending and his PMD being on vacation so he couldnt refill it. Pt notes that for the past few days, he has had a mild gradual onst pressure like headache that is diffuse without associated n/v, vision changes, numbness/tingling/weakness. The pt also endroses a few days of non productive cough associated with mild pleuritic cp whne he coughs. pt denies any muniz, worsening of cp with ambulation, fever/chills , leg swelling, calf pain, hemoptysis. - Physicial Exam PE: 11/01/19 19:04 exam: general:well appearing, no distress cardiac: rrr, no mrg pulm: cta b/l abd softnontnender ext: trace edema - Medical Decision Making 11/01/19 19:04 suspect hypertension secondary to noncomplaince cp likely due to bronchitis/cough, consider but do not think pe likely headache likey due to tension headache bridgette obtain trop
[2019-11-01] MEDS ORDERED: CARVEDILOL 3.125 MG TABLET (FP) ONE (18:29)
[2019-11-01 19:12] LABS: BASO % 0.3 % (0-2.0); EOS % 1.1 % (0-4.5); HEMATOCRIT 46.9 % (35.4-49); HEMOGLOBIN 15.4 GM/dL (11.7-16.9); LYMPH % 8.2 % (8-40); MCH 26.4 pg (25.7-33.7); MCHC 32.7 g/dl (32.0-35.9); MEAN CELL VOLUME 80.8 fl (80-96); MONO % 4.8 % (3.8-10.2); NEUT % 85.6 % (42.8-82.8); PLATELET COUNT 115 K/MM3 (134-434); RBC 5.81 M/mm3 (4.00-5.60); RDW 13.4 % (11.9-15.9); WHITE BLOOD COUNT 11.7 K/mm3 (4.0-10.0)
[2019-11-01 19:37] LABS: ALBUMIN 3.8 g/dl (3.4-5.0); BILIRUBIN,TOTAL 0.7 mg/dL (0.2-1); BLOOD UREA NITROGEN 17.7 mg/dL (7-18); CALCIUM 8.8 mg/dL (8.5-10.1); CREATININE 1.3 mg/dL (0.55-1.3); POTASSIUM 3.4 mmol/L (3.5-5.1); TOT PROT 7.4 g/dl (6.4-8.2)
--- NOTE | 2019-11-01 20:20 | PDOC ---
*Physical Exam - Vital Signs Last Vital Signs Temp Pulse Resp BP Pulse Ox 99.1 F 96 H 16 218/117 H 97 11/01/19 17:47 11/01/19 17:47 11/01/19 17:47 11/01/19 17:47 11/01/19 17:47 ED Treatment Course - LABORATORY CBC & Chemistry Diagram: 11/01/19 18:48 11/01/19 18:48 - ADDITIONAL ORDERS Additional order review: Laboratory Results 11/01/19 11/01/19 18:48 18:48 Sodium 140 Potassium 3.4 L Chloride 107 Carbon Dioxide 28 Anion Gap 6 L BUN 17.7 Creatinine 1.3 Est GFR (CKD-EPI)AfAm 71.19 Est GFR (CKD-EPI)NonAf 61.43 Random Glucose 85 Calcium 8.8 Total Bilirubin 0.7 AST 26 ALT 47 Alkaline Phosphatase 92 Troponin I 0.20 H Total Protein 7.4 Albumin 3.8 11/01/19 18:48 RBC 5.81 H MCV 80.8 MCHC 32.7 RDW 13.4 MPV 9.0 Neutrophils % 85.6 H D Lymphocytes % 8.2 D Monocytes % 4.8 Eosinophils % 1.1 Basophils % 0.3 - Medications Given in the ED: ED Medications Discontinued Medications Generic Name Dose Route Start Last Admin Trade Name Freq PRN Reason Stop Dose Admin Carvedilol 6.25 mg 11/01/19 18:09 11/01/19 18:54 Coreg - PO 11/01/19 18:10 6.25 mg ONCE ONE Administration HCTZ/Losartan Potassium 1 tab 11/01/19 18:09 11/01/19 18:55 Hyzaar - PO 11/01/19 18:10 1 tab ONCE ONE Administration Medical Decision Making - Medical Decision Making Trop 0.2 Pt allergic to ASA 11/01/19 20:20 Plan for admission for HTN urgency Pt endorses JUAREZ -Tylenol 975 given JUAREZ improving Pt denies chest pain, SOB, vision changes, or changes in sensation No anemia Lytes unremarkable No DILLAN LFTs wnl Pt signed out to [facility] Admitting 11/01/19 21:42 Pt continues to be hypertensive, endorses JUAREZ, denies CP/SOB/vision change/ sensation change Will give morphine 6mg IV once 11/01/19 21:48 Discharge - Discharge Information Problems reviewed: Yes Clinical Impression/Diagnosis: Hypertensive emergency Hypertension Qualifiers: Hypertension type: unspecified Qualified Code(s): I10 - Essential (primary) hypertension Headache Qualifiers: Headache type: unspecified Headache chronicity pattern: acute headache Intractability: not intractable Qualified Code(s): R51 - Headache Condition: Fair - Admission Yes - Follow up/Referral - Patient Discharge Instructions - Post Discharge Activity
--- NOTE | 2019-11-01 20:42 | PN ---
Teaching Attending Note Name of Resident: Anamaria Perez ATTENDING PHYSICIAN STATEMENT I saw and evaluated the patient. I reviewed the resident's note and discussed the case with the resident. I agree with the resident's findings and plan as documented. SUBJECTIVE: Patient is a 54 year old man with PMH of Uncontrolled HTN, HLD, Aspirin allergy and Nonadherence who presents with chest pain, cough, headache. Patient states that he has been off his antihypertensive medications for approximately 2 weeks due to his PMD being on vacation so he could not refill it. Patient notes that for the past few days, he has had a mild gradual onset pressure-like headache that is diffuse without associated nausea, vomiting, vision changes, numbness, tingling and weakness. Patient also has a few days of non productive cough associated with mild pleuritic chest pain when he coughs. Denies CARDONA, worsening of chest pain with ambulation, fever, chills, leg swelling, calf pain or hemoptysis. Patient denies sick contacts or recent travel. Nonsmoker and denies alcohol and iliicit drug use. Has FH of DM and CAD. This is his third admission to [facility] within the past 1 year for symptomatic uncontrolled hypertension - each time he admits to not taking his medications for weeks. He does have health insurance to get his medications. OBJECTIVE: Alert Vital Signs Period Temp Pulse Resp BP Sys/Arias Pulse Ox Last 24 Hr 99.1 F 96 16 218/117 97 HEENT: No Jaundice, eye redness or discharge, PERRLA, EOMI. Normocephalic, atraumatic. External ears are normal and hearing is grossly intact. No nasal discharge. Neck: Supple, nontender. No palpable adenopathy or thyromegaly. No JVD Chest: Good effort. Clear to auscultation and percussion. Heart: Regular. No S3, rub or murmur Abdomen: Not distended, soft, nontender and no HSM. No rebound or guarding. Normal bowel sounds. Ext: Peripheral pulses intact. No leg edema. Skin: Warm and dry. No petechiae, rash or ecchymosis. Neuro: Alert. Oriented x3. CN 2-12 grossly intact. Sensation grossly intact in all four extremities and DTR are symmetric. Psych: Appropriate mood and affect. Good insight. Home Medications Medication Instructions Recorded Blood Pressure Test Kit-Wrist 1 each DAILY #1 kit 08/06/19 [Blood Pressure Kit] Carvedilol [Coreg -] 6.25 mg PO BID #60 tablet 08/06/19 Carvedilol [Coreg -] 6.25 mg PO BID #60 tablet 08/06/19 Losartan 50Mg/Hctz 12.5MG [Hyzaar 1 tab PO DAILY #30 tablet 08/06/19 -] Losartan Potassium 50 mg PO DAILY 30 Days #30 tablet 08/07/19 Abnormal Lab Results 11/01/19 11/01/19 11/01/19 18:48 18:48 18:48 WBC 11.7 H RBC 5.81 H Plt Count 115 L Absolute Neuts (auto) 10.0 H Neutrophils % 85.6 H D Potassium 3.4 L Anion Gap 6 L Troponin I 0.20 H ASSESSMENT AND PLAN: 1. Hypertensive emergency/Chest pain - Uncontrolled hypertension due to nonadherence with antihypertensive medications. ER gave him Carvedilol 6.35 mg PO and Losartan/HCTZ 50 mg/12.5 mg PO. No acute intracranial abnormality on head CT. Troponin is elevated. EKG shows NSR with LAE, LVH and nonspecific T wave changes. Will admit to telemetry to rule out ACS. If hypertension persists , will give IV labetalol. Hypokalemia likely due to HCTZ. Will check serum Mg+ and give IV and PO KCL. Urinalysis pending. Outpatient workup for secondary hypertension. Restart suitable outpatient antihypertensive drugs when clinically appropriate. Revise regimen to ensure [id number] excellent BP control and behavioral health counselor patient on the injurious effects of uncontrolled hypertension. Nonpharmacologic measures to control hypertension like weight loss, salt restriction and exercise discussed. Importance of adherence to treatment regimen and attainment of normotension emphasized. Will continue comprehensive care for all of patient s comorbid conditions. 2. DVT prophylaxis - Lovenox 40 mg SQ q 24 hours. 3. Advance directives - Full code
[2019-11-01] MEDS ORDERED: ACETAMINOPHEN 325 MG TABLET (FP) PO ONE (20:43)
[2019-11-01] MEDS ORDERED: ACETAMINOPHEN 325 MG TABLET (FP) ONE (21:28)
[2019-11-01] MEDS ORDERED: LABETALOL HCL 5 MG/1 ML (100MG/20 ML VIAL) IVPUSH ONE (21:47)
[2019-11-01] MEDS ORDERED: morphine CARPU-JECT 4 MG/1 ML DISP.SYRIN IVPUSH ONE (21:48)
--- NOTE | 2019-11-01 22:16 | HP ---
CHIEF COMPLAINT: Headache PCP: None First Line Supervisor: Dr. Cortes ([place]) HISTORY OF PRESENT ILLNESS: Mr. Jung is a 54 year old male with PMH of uncontrolled HTN who presents with progressive pressure-like headache over the past 3 days. Headache is severe and pounding. Pt also complains of intermittent blurry vision, "pinching" chest pain , and mild abdominal discomfort. He has also had a mild dry cough for the past week. He denies any tinnitus, dizziness, nausea, vomiting, SOB. No dysuria or hematuria. Pt admits he has not taken his BP medications (Hyzaar daily, Coreg 6.25mg BID) for 20 days because his doctor has been on vacation over the holidays. He reports that he misses picking up his prescriptions on time because the pharmacy he chose is too far and he forgets to pick them up. By the time he went to the pharmacy 3 weeks ago, his prescription had . This is patient's 3rd hospital visit to [facility] in the past year for symptomatic uncontrolled HTN with medication non-compliance. Patient does have health insurance to get his medications. Patient was admitted to [facility] in July for similar symptoms. He had an elevated troponin, EKG showing chronic TWI in V5 and V6. Echo at that time showed mild LVH, EF: 50-55%, mild aortic sclerosis, impaired LV relaxation, mild aortic regurgitation. 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 Cortes at [facility]. Patient states he had stress echo and holter monitoring done 6 months ago that were reportedly normal. At his admission in July he also presented with painless hematuria. A renal US showed small L renal cyst 1.1cm. He was advised to f/u with urology as outpatient. Pt states that he never followed up but denies any recurrent urinary symptoms at this time. ER course was notable for: (1) Initial BP: 218/117, received home meds Hyzaar and Coreg 6.25mg --> BP decreased to 190/107. (2) CT head: no acute intracranial hemorrhage or pathology (3) EKG: NSR with LAE, LVH and nonspecific T wave changes, troponin: 0.2 Recent Travel: denies PAST MEDICAL HISTORY: As per HPI PAST SURGICAL HISTORY: Appendectomy Cholecystectomy Social History: Smoking: denies Alcohol: socially, 1-2 drinks/week Drugs: denies Family History: Diabetes in mother, sister, grandmother Allergies aspirin Allergy (Verified 11/01/19 17:52) unknown HOME MEDICATIONS: Home Medications Medication Instructions Recorded Carvedilol [Coreg -] 6.25 mg PO BID #60 tablet 08/06/19 Losartan Potassium 50 mg PO DAILY 30 Days #30 tablet 08/07/19 REVIEW OF SYSTEMS CONSTITUTIONAL: Absent: fever, chills, diaphoresis, generalized weakness, malaise, loss of appetite, weight change HEENT: Absent: rhinorrhea, nasal congestion, throat pain, throat swelling, difficulty swallowing, mouth swelling, ear pain, eye pain, visual changes CARDIOVASCULAR: chest pain Absent: syncope, palpitations, irregular heart rate, lightheadedness, peripheral edema RESPIRATORY: Absent: cough, shortness of breath, dyspnea with exertion, orthopnea, wheezing, stridor, hemoptysis GASTROINTESTINAL: abdominal pain Absent: abdominal distension, nausea, vomiting, diarrhea, constipation, melena , hematochezia GENITOURINARY: Absent: dysuria, frequency, urgency, hesitancy, hematuria, flank pain, genital pain MUSCULOSKELETAL: Absent: myalgia, arthralgia, joint swelling, back pain, neck pain SKIN: Absent: rash, itching, pallor HEMATOLOGIC/IMMUNOLOGIC: Absent: easy bleeding, easy bruising, lymphadenopathy, frequent infections ENDOCRINE: Absent: unexplained weight gain, unexplained weight loss, heat intolerance, cold intolerance NEUROLOGIC: headache Absent: focal weakness or paresthesias, dizziness, unsteady gait, seizure, mental status changes, bladder or bowel incontinence PSYCHIATRIC: Absent: anxiety, depression, suicidal or homicidal ideation, hallucinations. PHYSICAL EXAMINATION Vital Signs - 24 hr 11/01/19 11/01/19 17:47 21:35 Temperature 99.1 F 98.5 F Pulse Rate 96 H Pulse Rate [ 87 Right Radial] Respiratory 16 19 Rate Blood Pressure 218/117 H Blood Pressure 197/109 H [Right Arm] O2 Sat by Pulse 97 99 Oximetry (%) GENERAL: Awake, alert, and fully oriented, in no acute distress. HEAD: Normal with no signs of trauma. EYES: Pupils equal, round and reactive to light, extraocular movements intact, sclera anicteric, conjunctiva clear. No lid lag. EARS, NOSE, THROAT: Ears normal, nares patent, oropharynx clear without exudates. Moist mucous membranes. NECK: Normal range of motion, supple without lymphadenopathy, JVD, or masses. LUNGS: Breath sounds equal, clear to auscultation bilaterally. No wheezes, and no crackles. No accessory muscle use. HEART: Tachycardic, pounding heart sounds. No murmur, rub or gallop. ABDOMEN: Soft, nontender, not distended, normoactive bowel sounds, no guarding, no rebound, no masses. No hepatomegaly or splenomegaly. MUSCULOSKELETAL: Normal range of motion at all joints. No bony deformities or tenderness. No CVA tenderness. UPPER EXTREMITIES: 2+ pulses, warm, well-perfused. No cyanosis. No clubbing. No peripheral edema. LOWER EXTREMITIES: 2+ pulses, warm, well-perfused. No calf tenderness. No peripheral edema. NEUROLOGICAL: Cranial nerves II-XII intact. Normal speech. Normal gait. PSYCHIATRIC: Cooperative. Good eye contact. Appropriate mood and affect. SKIN: Warm, dry, normal turgor, no rashes or lesions noted, normal capillary refill. Laboratory Results - last 24 hr CBC, BMP 11/01/19 18:48 11/01/19 18:48 ASSESSMENT/PLAN: Mr. Jung is a 54 year old male with PMH of uncontrolled HTN who presents with progressive pressure-like headache over the past 3 days as well as intermittent chest pain, blurry vision, and abdominal pain. #Hypertensive emergency Initial BP: 218/117 with symptoms of headache, blurry vision, chest pain and abdominal discomfort Initial trop: 0.2, cont to trend EKG: NSR with LAE, LVH and nonspecific T wave changes Pt received home doses of coreg 6.25g and Hyzaar 50-25, BP improved to 196/ 107. Gave labetolol 10 BP improved to 164/83. Will increase home dose of BP meds: Losaratan 100mg, Hctz 12.mg, Coreg 12.5mg BID, start in am Cont frequent monitoring of BP Tele monitoring with serial EKGs and trops UA: 3+ protein, trace blood Utox: negative Consider nephro consultation for BP control Consider workup of secondary HTN as outpatient Encourage importance of medication compliance #FEN No standing fluids warranted at this time Sodium-controlled diet #DVT ppx Heparin sq #Dispo Monitor on tele Visit type - Emergency Visit Emergency Visit: Yes ED Registration Date: 11/01/19 Care time: The patient presented to the Emergency Department on the above date and was hospitalized for further evaluation of their emergent condition. - New Patient This patient is new to me today: Yes Date on this admission: 11/02/19 - Critical Care Critical Care patient: No ATTENDING PHYSICIAN STATEMENT I saw and evaluated the patient. I reviewed the resident's note and discussed the case with the resident. I agree with the resident's findings and plan as documented. SUBJECTIVE: OBJECTIVE: ASSESSMENT AND PLAN:
[2019-11-01] MEDS ORDERED: morphine SULFATE 4 MG/ML VIAL ONE (22:44)
[2019-11-01] MEDS ORDERED: MORPHINE SULFATE 2 MG/ML VIAL ONE (22:44)
[2019-11-01 22:47] LABS: EPI CELLS 0.9 /HPF (0-5/HPF); HYALINE CASTS 4 /lpf (0-8); URINE APPEARANCE CLEAR; URINE BACTERIA 1.5 /hpf (NEGATIVE); URINE BILIRUBIN NEGATIVE (NEGATIVE); URINE COLOR YELLOW; URINE GLUCOSE (UA) NEGATIVE (NEGATIVE); URINE KETONE NEGATIVE (NEGATIVE); URINE LEUK ESTERASE NEGATIVE (NEGATIVE); URINE NITRITE NEGATIVE (NEGATIVE); URINE PROTEIN 3+ (NEGATIVE); URINE RBC 6 /hpf (0-4); URINE UROBILINOGEN 0.2 mg/dL (0.2-1.0); URINE WBC 0 /hpf (0-5)
[2019-11-01 22:54] LABS: COCAINE, UR NEGATIVE ng/ml (CUTOFF=300); METHADONE, UR NEGATIVE ng/ml (CUTOFF=300); OPIATES, URI NEGATIVE ng/ml (CUTOFF=300); PHENCYCLIDINE,URINE NEGATIVE ng/ml (CUTOFF=25); URINE AMPHETAMINES NEGATIVE ng/ml (CUTOFF=500); URINE BARBITURATES NEGATIVE ng/ml (CUTOFF=200); URINE BENZODIAZEPINES NEGATIVE ng/ml (CUTOFF=200)
[2019-11-02] MEDS ORDERED: HEPARIN NA (PORCINE) 5,000 UNITS/ML 1ML VIAL ONE ×2 (01:45→06:01)
[2019-11-02] MEDS: HEPARIN NA (PORCINE) 5,000 UNITS/ML 1ML VIAL SQ SCH ×4 (01:49→21:10)
[2019-11-02] MEDS ORDERED: POTASSIUM CHLORIDE TABS 20 MEQ TABLET.ER (FP) PO ONE ×3 (03:52→07:36)
[2019-11-02 06:08] LABS: HEMATOCRIT 43.4 % (35.4-49); HEMOGLOBIN 14.5 GM/dL (11.7-16.9); MCH 26.8 pg (25.7-33.7); MCHC 33.4 g/dl (32.0-35.9); MEAN CELL VOLUME 80.3 fl (80-96); MEAN PLT VOLUME 9.3 fl (7.5-11.1); PLATELET COUNT 118 K/MM3 (134-434); RDW 13.6 % (11.9-15.9); WHITE BLOOD COUNT 8.8 K/mm3 (4.0-10.0)
[2019-11-02 06:40] LABS: ALBUMIN 3.6 g/dl (3.4-5.0); BILIRUBIN,TOTAL 1.1 mg/dL (0.2-1); BLOOD UREA NITROGEN 22.6 mg/dL (7-18); CALCIUM 8.3 mg/dL (8.5-10.1); CREATININE 1.4 mg/dL (0.55-1.3); POTASSIUM 3.2 mmol/L (3.5-5.1)
--- NOTE | 2019-11-02 09:29 | EKG ---
Test Reason : Blood Pressure : / mmHG Vent. Rate : 090 BPM Atrial Rate : 090 BPM P-R Int : 168 ms QRS Dur : 106 ms QT Int : 392 ms P-R-T Axes : 054 026 055 degrees QTc Int : 479 ms NORMAL SINUS RHYTHM POSSIBLE LEFT ATRIAL ENLARGEMENT LEFT VENTRICULAR HYPERTROPHY NONSPECIFIC T WAVE ABNORMALITY PROLONGED QT ABNORMAL ECG Confirmed by Jose Stokes MD ([id number]) on 11/02/2019 9:29:15 AM Referred By: Confirmed By:Jose Stokes MD
[2019-11-02] MEDS ORDERED: CARVEDILOL 12.5 MG TABLET (FP) PO SCH (10:00)
[2019-11-02] MEDS ORDERED: HYDROCHLOROTHIAZIDE 12.5 MG CAPSULE (FP) PO SCH (10:00)
[2019-11-02] MEDS ORDERED: LOSARTAN POTASSIUM 50 MG TABLET (FP) PO SCH (10:00)
--- NOTE | 2019-11-02 12:58 | EKG ---
Test Reason : Blood Pressure : / mmHG Vent. Rate : 087 BPM Atrial Rate : 087 BPM P-R Int : 170 ms QRS Dur : 104 ms QT Int : 380 ms P-R-T Axes : 059 028 071 degrees QTc Int : 457 ms NORMAL SINUS RHYTHM POSSIBLE LEFT ATRIAL ENLARGEMENT LEFT VENTRICULAR HYPERTROPHY NONSPECIFIC T WAVE ABNORMALITY ABNORMAL ECG WHEN COMPARED WITH ECG OF 06-AUG-2019 02:52, NONSPECIFIC T WAVE ABNORMALITY NO LONGER EVIDENT IN INFERIOR LEADS Confirmed by MD Severiano, Toribio ([id number]) on 11/02/2019 12:58:27 PM Referred By: Confirmed By:Toribio العلي MD
[2019-11-02 16:22] VITALS: BMI 27.6
--- NOTE | 2019-11-02 16:56 | PN ---
Teaching Attending Note Name of Resident: Jason Garcia ATTENDING PHYSICIAN STATEMENT I saw and evaluated the patient. I reviewed the resident's note and discussed the case with the resident. I agree with the resident's findings and plan as documented. SUBJECTIVE: No fever or chills. No CP or SOB. No JUAREZ . OBJECTIVE: NAD. Cv: RRR Lungs: CTAB EXt: trace edema Abd: soft, NT, ND, NL BS . No bruit over renal arteries. Radial pulse 2+ b/l , symmetric, no delay between radial and femoral pulses. ASSESSMENT AND PLAN: 54 y/o man with h/o HTN, HLp, non compliance who presented to Er and being treated for HTN emergency 1- HTN emergency with DILLAN and elevated trop 2- Elevated trop , likely demand ischemia in setting of severe HTN 3- DILLAN due to #1 4- Hypokalemia 5- Elevated LFts 6- H/o DM plan : - received coreg and losartan. this am. dc HCTZ in setting of hypokalemia, and to improve compliance - if cr is still elevated in am , will change losartan to Labetalol - low salt diet. - counseled about compliance and nursing home consequences of HTN - trop has decreased - will need a stress test in near future - if LFTS worsen, will need an Abd US tomorrow - follow K level . - heaprin SQ for DVT px
--- NOTE | 2019-11-02 19:40 | PN ---
Physical Exam: SUBJECTIVE: Patient seen and examined. Spoke with patient using [employer] interpreting service, #[id number]. Patient states his chest pain has resolved and only complains of mild abd pain. No SOB, fever, chills. Patient has not picked up his BP meds for over a month. OBJECTIVE: Vital Signs Period Temp Pulse Resp BP Sys/Arias Pulse Ox Last 24 Hr 97.9 F-98.5 F 71-87 15-20 144-197/79-109 96-99 GENERAL: The patient is awake, alert, and fully oriented, in no acute distress. HEAD: Normal with no signs of trauma. EYES: EOMI, no ptosis ENT: MMM NECK: Trachea midline, full range of motion, supple. LUNGS: Breath sounds equal, clear to auscultation bilaterally, no wheezes, no crackles, no accessory muscle use. HEART: Regular rate and rhythm, S1, S2 without murmur, rub or gallop ABDOMEN: Soft, nontender, nondistended, normoactive bowel sounds, no guarding EXTREMITIES: 2+ pulses, warm, well-perfused, no edema. NEUROLOGICAL: Normal speech, normal gait. 5/5 strength upper and lower extremities PSYCH: Normal mood, normal affect. SKIN: Warm, dry, normal turgor, no rashes or lesions noted Laboratory Results - last 24 hr 11/01/19 11/01/19 11/01/19 18:48 18:48 22:00 WBC RBC Hgb Hct MCV MCH MCHC RDW Plt Count MPV Sodium 140 Potassium 3.4 L Chloride 107 Carbon Dioxide 28 Anion Gap 6 L BUN 17.7 Creatinine 1.3 Est GFR (CKD-EPI)AfAm 71.19 Est GFR (CKD-EPI)NonAf 61.43 Random Glucose 85 Calcium 8.8 Total Bilirubin 0.7 AST 26 ALT 47 Alkaline Phosphatase 92 Troponin I 0.20 H 0.18 H Total Protein 7.4 Albumin 3.8 Urine Color Urine Appearance Urine pH Ur Specific [place] Urine Protein Urine Glucose (UA) Urine Ketones Urine Blood Urine Nitrite Urine Bilirubin Urine Urobilinogen Ur Leukocyte Esterase Urine WBC (Auto) Urine RBC (Auto) Urine Casts (Auto) U Epithel Cells (Auto) Urine Bacteria (Auto) Opiates Screen Methadone Screen Barbiturate Screen Phencyclidine Screen Ur Amphetamines Screen MDMA (Ecstasy) Screen Benzodiazepines Screen Cocaine Screen U Marijuana (THC) Screen 11/01/19 11/01/19 11/02/19 22:38 22:38 04:50 WBC RBC Hgb Hct MCV MCH MCHC RDW Plt Count MPV Sodium Potassium Chloride Carbon Dioxide Anion Gap BUN Creatinine Est GFR (CKD-EPI)AfAm Est GFR (CKD-EPI)NonAf Random Glucose Calcium Total Bilirubin AST ALT Alkaline Phosphatase Troponin I 0.14 H Total Protein Albumin Urine Color Yellow Urine Appearance Clear Urine pH 7.0 Ur Specific [place] 1.019 Urine Protein 3+ H Urine Glucose (UA) Negative Urine Ketones Negative Urine Blood Trace Urine Nitrite Negative Urine Bilirubin Negative Urine Urobilinogen 0.2 Ur Leukocyte Esterase Negative Urine WBC (Auto) 0 Urine RBC (Auto) 6 Urine Casts (Auto) 4 U Epithel Cells (Auto) 0.9 Urine Bacteria (Auto) 1.5 Opiates Screen Negative Methadone Screen Negative Barbiturate Screen Negative Phencyclidine Screen Negative Ur Amphetamines Screen Negative MDMA (Ecstasy) Screen Negative Benzodiazepines Screen Negative Cocaine Screen Negative U Marijuana (THC) Screen Negative 11/02/19 11/02/19 05:15 05:15 WBC 8.8 RBC 5.40 Hgb 14.5 Hct 43.4 MCV 80.3 MCH 26.8 MCHC 33.4 RDW 13.6 Plt Count 118 L MPV 9.3 Sodium 140 Potassium 3.2 L Chloride 105 Carbon Dioxide 26 Anion Gap 9 BUN 22.6 H Creatinine 1.4 H Est GFR (CKD-EPI)AfAm 65.09 Est GFR (CKD-EPI)NonAf 56.16 Random Glucose 116 H Calcium 8.3 L Total Bilirubin 1.1 H AST 49 H ALT 62 H Alkaline Phosphatase 88 Troponin I 0.14 H Total Protein 7.0 Albumin 3.6 Urine Color Urine Appearance Urine pH Ur Specific [place] Urine Protein Urine Glucose (UA) Urine Ketones Urine Blood Urine Nitrite Urine Bilirubin Urine Urobilinogen Ur Leukocyte Esterase Urine WBC (Auto) Urine RBC (Auto) Urine Casts (Auto) U Epithel Cells (Auto) Urine Bacteria (Auto) Opiates Screen Methadone Screen Barbiturate Screen Phencyclidine Screen Ur Amphetamines Screen MDMA (Ecstasy) Screen Benzodiazepines Screen Cocaine Screen U Marijuana (THC) Screen Active Medications Generic Name Dose Route Start Last Admin Trade Name Freq PRN Reason Stop Dose Admin Carvedilol 12.5 mg 11/02/19 22:00 Coreg - PO BID [facility] Heparin Sodium (Porcine) 5,000 unit 11/01/19 23:30 11/02/19 15:55 Heparin - SQ 5,000 unit TID HYACINTH Administration Losartan Potassium 100 mg 11/02/19 10:00 11/02/19 10:41 Cozaar - PO 100 mg DAILY HYACINTH Administration ASSESSMENT/PLAN: 54 y/o/m with PMHx of uncontrolled HTN who presented with progressive pressure- like headache over 3 days as well as intermittent chest pain, blurry vision, and abdominal pain. #Hypertensive emergency - Initial BP: 218/117 in ED, now improving - Trop trended to peak, now downtrending - EKG: NSR with LAE, LVH and nonspecific T wave changes - Increased home dose of BP meds: Losaratan 100mg, Coreg 12.5mg BID - discontinue HCTZ - Utox: negative - Consider workup of secondary HTN as outpatient - Encourage importance of medication compliance - if creatinine is still elevated in the AM will change patient from losartan to labetalol 200mg BID #FEN - No IVF, encourage PO intake - Sodium-controlled diet - monitor and replete lytes as needed - hypokalemia - repleted #DVT ppx - Heparin #Disposition - D/C pending improvement in BP Visit type - Emergency Visit Emergency Visit: Yes ED Registration Date: 11/01/19 Care time: The patient presented to the Emergency Department on the above date and was hospitalized for further evaluation of their emergent condition. - New Patient This patient is new to me today: Yes Date on this admission: 11/02/19 - Critical Care Critical Care patient: No ATTENDING PHYSICIAN STATEMENT I saw and evaluated the patient. I reviewed the resident's note and discussed the case with the resident. I agree with the resident's findings and plan as documented. SUBJECTIVE: OBJECTIVE: ASSESSMENT AND PLAN:
[2019-11-02] MEDS: CARVEDILOL 12.5 MG TABLET (FP) PO SCH (21:10)
[2019-11-02] MEDS ORDERED: CARVEDILOL 25 MG TABLET (FP) PO SCH (22:00)
[2019-11-03] MEDS: HEPARIN NA (PORCINE) 5,000 UNITS/ML 1ML VIAL SQ SCH ×3 (06:09→21:32)
--- NOTE | 2019-11-03 08:16 | PN ---
Teaching Attending Note Name of Resident: Jason Garcia ATTENDING PHYSICIAN STATEMENT I saw and evaluated the patient. I reviewed the resident's note and discussed the case with the resident. I agree with the resident's findings and plan as documented. Seen and examined; please see resident note for further historical information. I personally verified all gonzalez historical information and exam findings. Personally interpreted all imaging and diagnostics and reviewed appropriate consults. I reviewed all labs and vital signs as per resident note and EMR as documented. I agree with the above assessment and plan unless supplemented by myself in the following. Blood pressures improved overnight from the admitting values to the 1 50-1 60 range. Remains on room air with normal heart rate. No abberancies of significance noted on telemetry. 10 sys ROS done and negative aside from HPI VS, labs, imaging reviewed NAD, AAO, resting comfortably in bed. RRR s1/2 no mgr Normal muscle tone, moves all 5 extremities with normal apparent strength Neck is supple, trachea midline, no anne LN Lungs CTAB with sym expansion NT ND +BS no anne organomegaly CN2-12 wnl; no FND NC AT EOMI PERRLA Normal mood, appropriate behavior, euthymic affect No skin breakdown or rashes notedWas [facility] ago Echo 07/2019 reviewed EKG reviewed Telemetry reviewed ASSESSMENT AND PLAN: Presents with improved hypertensive emergency; pending cardiac clearance for DX Problems include: -Hypertensive emergency, improved -NSTEMI, type II, improved, likely subendocardial ischemia in the setting of acute kidney injury secondary to demand. Stress testing per cardiology. Has been seen by cardiology in the past here by Dr. Dave and follows with Henry Cortes MD at [facility] last visit ~6 months ago, stress test and echo reportedly normal) -Acute kidney injury likely secondary to diuretic use as well as uncontrolled hypertension. Continue to monitor BMP. At risk for hypertensive kidney disease. 1.3 on November 01-1.4 on November 02, will trend to ensure resolution. -Hypokalemia (noted 11/01, 11/02. Trend.) -Transaminitis with hyperbilirubinemia (Trend CMP, checking JOHN PAUL US and if not improved consider GI consult) -Hx D-CHF -Hx Hematuria -Hx ASA Allergy (States facial allergy) -Hx DM (Start SSI if glucose consistently >180) -Hx HLD -Mild AR/TR -Hx Noncompliance (Counseled) -Overweight (BMI 27.6; extension course counselor prior to DC) Will discuss with Dr. Tenzin Pruitt Code
[2019-11-03 08:26] LABS: ALBUMIN 3.2 g/dl (3.4-5.0); BILIRUBIN,TOTAL 0.5 mg/dL (0.2-1); BLOOD UREA NITROGEN 25.2 mg/dL (7-18); CALCIUM 8.2 mg/dL (8.5-10.1); CREATININE 1.5 mg/dL (0.55-1.3); POTASSIUM 3.7 mmol/L (3.5-5.1); TOT PROT 6.3 g/dl (6.4-8.2)
[2019-11-03] MEDS: CARVEDILOL 12.5 MG TABLET (FP) PO SCH ×2 (09:33→21:36)
[2019-11-03] MEDS ORDERED: LABETALOL HCL 200 MG TABLET (FP) PO SCH (10:00)
--- NOTE | 2019-11-03 11:28 | CON.CARD ---
Consult Consult Specialty:: Cardiology Referred by:: [facility] hospital[facility] Medicine Reason for Consultation:: Recurrent HTN urgency off meds - History of Present Illness Chief Complaint: Recurrent HTN urgency off meds History of Present Illness: Patient is a 54 year old man with PMH of Uncontrolled HTN, HLD, Aspirin allergy and Nonadherence who presents with chest pain, cough, headache similar to previous cases of HTN urgency resolving with BP control. Patient states that he has been off his antihypertensive medications for approximately 2 weeks due to his PMD being on vacation so he could not refill it. Allergies: ASA, Motrin->facial swelling Past surgical history: None reported. Social history: No reported alcohol, drug or cigarette use Technical Advisor: Henry Cortes MD at [facility] last visit 6 months ago, stress test and echo reportedly normal - History Source History Provided By: Patient Limitations to Obtaining History: No Limitations - Past Medical History Cardio/Vascular: Yes: HTN - Alcohol/Substance Use Hx Alcohol Use: Yes - Smoking History Smoking history: Never smoked Have you smoked in the past 12 months: No Home Medications - Allergies Allergies/Adverse Reactions: Allergies Allergy/AdvReac Type Severity Reaction Status Date / Time aspirin Allergy unknown Verified 11/01/19 17:52 - Home Medications Home Medications: Ambulatory Orders Carvedilol [Coreg -] 6.25 mg PO BID #60 tablet 08/06/19 Losartan Potassium 50 mg PO DAILY 30 Days #30 tablet 08/07/19 Losartan/Hydrochlorothiazide [Losartan-Hctz 50-12.5 mg Tab] 1 tablet PO DAILY Review of Systems - Review of Systems Neurological: reports: Headache Vital Signs: Vital Signs Temperature 97.9 F 11/03/19 07:53 Pulse Rate 71 11/03/19 10:30 Respiratory Rate 20 11/03/19 07:56 Blood Pressure 145/82 11/03/19 10:30 O2 Sat by Pulse Oximetry (%) 98 11/03/19 07:56 Constitutional: Yes: No Distress, Calm Neck: Yes: Supple Respiratory: Yes: Regular, CTA Bilaterally Gastrointestinal: Yes: Normal Bowel Sounds, Soft Cardiovascular: Yes: Regular Rate and Rhythm JVD: No Carotid Bruit: No Heart Sounds: Yes: S1, S2 Edema: No - Other Data Labs, Other Data: CBC, BMP 11/02/19 05:15 11/03/19 06:12 NSR @ 87 LAE, LVH Tele: No events Ejection Fraction %: LVEF > or = 40 % Imaging - Results Chest X-ray: Report Reviewed (NAD) Cat Scan: Report Reviewed (HCT: Negative) Problem List - Problems (1) Hypertensive encephalopathy Code(s): I67.4 - HYPERTENSIVE ENCEPHALOPATHY (2) Hypertensive heart disease Code(s): I11.9 - HYPERTENSIVE HEART DISEASE WITHOUT HEART FAILURE Qualifiers: Heart failure presence: without heart failure Qualified Code(s): I11.9 - Hypertensive heart disease without heart failure (3) Hypertensive urgency Code(s): I16.0 - HYPERTENSIVE URGENCY (4) Subendocardial ischemia Code(s): I24.8 - OTHER FORMS OF ACUTE ISCHEMIC HEART DISEASE Assessment/Plan Echo: 08/06/2019 Mild cLVH low normal LVEF 50-55%, impaired LV compliance, normal RV size and fxn, tr-mild TR, mild AR, no pericardial effusion Echo: 11/04/2018 Mod cLVH and borderline normal LV systolic function LVEF 50-55% , mild MR, TR, AR 1. Hypertensive urgency, hypertensive heart disease with encephelopathy resolving 2. Palpitations w/o events on telemetry 3. Diastolic dysfunction with subendocardial ischemia 4. Hematuria 5. 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 Medication noncompliance 8. Hypokalemia 9. Abnl LFTs improving P:1. Trops have plateaued, telemetry w/o arrhythmia, replete K, f/u renal US, prt to moulder operator ratio 2. Continue carvedilol 12.5 bid and resume losartan 50 qd with uptitration as tolerated once renal fxn stabilizes, emphasized importance of diet and medication compliance 3. Eventual f/u with Dr. Henry Cortes, previously underwent stress echo to exclude ischemia and holter monitoring to assess arrhythmia burden as outpatient 4. Thank you for consultative opportunity
--- NOTE | 2019-11-03 11:32 | CONSULT ---
Consult Consult Specialty:: Nephrology Reason for Consultation:: DILLAN - History of Present Illness Chief Complaint: headache History of Present Illness: Pt is a 54 year old male with pmhx of htn who presents to the ER with headache. He was found to be hypertensive. He has hx of HTN and has not taken his meds. He says he has had htn for 5 years. He was started on meds and bp did improve. He says he feels better today. He denies dysuria or hematuria. He denies history of ckd. He says he takes nsaids about 3 to 4 times a week for headaches. He is on hyzaar and coreg at home. - History Source History Provided By: Patient, Medical Record - Past Medical History Cardio/Vascular: Yes: HTN Renal/: Yes: Renal Inusuff, Other (proteinuria) - Alcohol/Substance Use Hx Alcohol Use: Yes - Smoking History Smoking history: Never smoked Have you smoked in the past 12 months: No Home Medications - Allergies Allergies/Adverse Reactions: Allergies Allergy/AdvReac Type Severity Reaction Status Date / Time aspirin Allergy unknown Verified 11/01/19 17:52 - Home Medications Home Medications: Ambulatory Orders Carvedilol [Coreg -] 6.25 mg PO BID #60 tablet 08/06/19 Losartan Potassium 50 mg PO DAILY 30 Days #30 tablet 08/07/19 Losartan/Hydrochlorothiazide [Losartan-Hctz 50-12.5 mg Tab] 1 tablet PO DAILY Family Medical History Family History: Denies Review of Systems - Review of Systems Constitutional: reports: Malaise Eyes: reports: No Symptoms HENT: reports: No Symptoms Neck: reports: No Symptoms Cardiovascular: reports: No Symptoms Respiratory: reports: No Symptoms Gastrointestinal: reports: No Symptoms Genitourinary: reports: No Symptoms Musculoskeletal: reports: No Symptoms Integumentary: reports: No Symptoms Neurological: reports: Headache Hematology/Lymphatic: reports: No Symptoms Psychiatric: reports: No Symptoms Physical Exam Vital Signs: Vital Signs Temperature 97.9 F 11/03/19 07:53 Pulse Rate 71 11/03/19 10:30 Respiratory Rate 20 11/03/19 07:56 Blood Pressure 145/82 11/03/19 10:30 O2 Sat by Pulse Oximetry (%) 98 11/03/19 07:56 Constitutional: Yes: Calm Eyes: Yes: Conjunctiva Clear HENT: Yes: Atraumatic Neck: Yes: Supple Cardiovascular: Yes: S1, S2 Respiratory: Yes: CTA Bilaterally Gastrointestinal: Yes: Normal Bowel Sounds, Soft Renal/: Yes: WNL Musculoskeletal: Yes: WNL Edema: No Neurological: Yes: Oriented Psychiatric: Yes: Oriented Labs: CBC, BMP 11/02/19 05:15 11/03/19 06:12 Laboratory Tests 08/06/19 08/06/19 11/01/19 03:30 06:36 18:48 Creatinine 1.2 1.3 Urine Protein 2+ H Urine Blood 11/01/19 11/02/19 11/03/19 22:38 05:15 06:12 Creatinine 1.4 H 1.5 H Urine Protein 3+ H Urine Blood Trace Imaging - Results Chest X-ray: Report Reviewed Problem List - Problems (1) Headache Code(s): R51 - HEADACHE Qualifiers: Headache type: unspecified Headache chronicity pattern: acute headache (2) Hypertension Code(s): I10 - ESSENTIAL (PRIMARY) HYPERTENSION Qualifiers: Hypertension type: unspecified Qualified Code(s): I10 - Essential (primary ) hypertension Assessment/Plan Current Medications Generic Name Dose Route Start Last Admin Trade Name Freq PRN Reason Stop Dose Admin Carvedilol 12.5 mg 11/02/19 22:00 11/03/19 09:33 Coreg - PO 12.5 mg BID HYACINTH Administration Heparin Sodium (Porcine) 5,000 unit 11/01/19 23:30 11/03/19 06:09 Heparin - SQ 5,000 unit TID HYACINTH Administration Nifedipine 30 mg 11/04/19 10:00 Procardia Xl - PO DAILY [facility] Impression 1. azotemia 2. htn 3. non compliance 4. proteinuria Plan - bp is improved - elevated holistic specialist may be because bp is better controlled, will cont to monitor - pt does have proteinuria and does need further workup - check renal ultrasound - check prt to holistic specialist ratio - would restart arb to help with proteinuria once holistic specialist is stable - discussed compliance
--- NOTE | 2019-11-03 16:59 | PN ---
Physical Exam: SUBJECTIVE: Patient seen and examined. Concerned about going home but explained to him why he is staying in the hospital and he is ok with staying. Denies chest pain, abd pain, SOB, chills, fever, or other concerns. OBJECTIVE: Vital Signs Period Temp Pulse Resp BP Sys/Arias Pulse Ox Last 24 Hr 97.7 F-99 F 65-77 20-20 145-170/79-93 98-98 GENERAL: The patient is awake, alert, and fully oriented, in no acute distress. HEAD: Normal with no signs of trauma. EYES: EOMI, no ptosis ENT: MMM NECK: Trachea midline, full range of motion, supple. LUNGS: Breath sounds equal, clear to auscultation bilaterally, no wheezes, no crackles, no accessory muscle use. HEART: diastolic murmurs noted. Regular rhythm ABDOMEN: Soft, nontender, nondistended, normoactive bowel sounds, no guarding EXTREMITIES: 2+ pulses, warm, well-perfused, no edema. NEUROLOGICAL: Normal speech, normal gait. 5/5 strength upper and lower extremities PSYCH: Normal mood, normal affect SKIN: Warm, dry, normal turgor, no rashes or lesions noted Laboratory Results - last 24 hr 11/03/19 11/03/19 06:12 06:12 Sodium 142 Potassium 3.7 Chloride 109 H Carbon Dioxide 25 Anion Gap 8 BUN 25.2 H Creatinine 1.5 H Est GFR (CKD-EPI)AfAm 59.88 Est GFR (CKD-EPI)NonAf 51.67 Random Glucose 86 Hemoglobin A1c % 5.0 Calcium 8.2 L Total Bilirubin 0.5 AST 23 ALT 46 Alkaline Phosphatase 76 Total Protein 6.3 L Albumin 3.2 L Triglycerides 95 Cholesterol 140 Total LDL Cholesterol 87 HDL Cholesterol 38 L Active Medications Generic Name Dose Route Start Last Admin Trade Name Freq PRN Reason Stop Dose Admin Carvedilol 12.5 mg 11/02/19 22:00 11/03/19 09:33 Coreg - PO 12.5 mg BID HYACINTH Administration Heparin Sodium (Porcine) 5,000 unit 11/01/19 23:30 11/03/19 13:54 Heparin - SQ 5,000 unit TID HYACINTH Administration Nifedipine 30 mg 11/04/19 10:00 Procardia Xl - PO DAILY [facility] ASSESSMENT/PLAN: 54 y/o/m with PMHx of uncontrolled HTN who presented with progressive pressure- like headache over 3 days as well as intermittent chest pain, blurry vision, and abdominal pain. #Hypertensive emergency - Initial BP: 218/117 in ED, now improving - Trop trended to peak, now downtrending - EKG: NSR with LAE, LVH and nonspecific T wave changes - Coreg 12.5 PO BID - Started on Nifedipine 30mg daily - discontinue HCTZ - discontinue Losartan due to worsening renal function. Will consider restarting if renal function stabilizes - Utox: negative - Consider workup of secondary HTN as outpatient - Encourage importance of medication compliance #Worsening renal function - UA with 3+ protein - Nephro consulted - f/u renal U/S - recommended to restart arb to help with proteinuria once renal function improving #FEN - No IVF, encourage PO intake - Sodium-controlled diet - monitor and replete lytes as needed #DVT ppx - Heparin #Disposition - D/C pending improvement in BP, renal function Visit type - Emergency Visit Emergency Visit: Yes ED Registration Date: 11/01/19 Care time: The patient presented to the Emergency Department on the above date and was hospitalized for further evaluation of their emergent condition. - New Patient This patient is new to me today: No - Critical Care Critical Care patient: No ATTENDING PHYSICIAN STATEMENT I saw and evaluated the patient. I reviewed the resident's note and discussed the case with the resident. I agree with the resident's findings and plan as documented. SUBJECTIVE: OBJECTIVE: ASSESSMENT AND PLAN:
[2019-11-04] MEDS: HEPARIN NA (PORCINE) 5,000 UNITS/ML 1ML VIAL SQ SCH ×3 (05:57→21:08)
[2019-11-04 08:12] LABS: ALBUMIN 3.2 g/dl (3.4-5.0); BLOOD UREA NITROGEN 23.5 mg/dL (7-18); CALCIUM 8.3 mg/dL (8.5-10.1); CREATININE 1.4 mg/dL (0.55-1.3); POTASSIUM 3.5 mmol/L (3.5-5.1); TOT PROT 6.4 g/dl (6.4-8.2)
--- NOTE | 2019-11-04 09:11 | PN ---
Teaching Attending Note Name of Resident: Jason Garcia ATTENDING PHYSICIAN STATEMENT I saw and evaluated the patient. I reviewed the resident's note and discussed the case with the resident. I agree with the resident's findings and plan as documented. SUBJECTIVE: BP improved overnight but this morning at 530 they had a reading of 174/88. Is asymptomatic. Cardiology and nephrology input noted. From a cardiac standpoint , the patient is to continue twice daily Coreg and resume losartan when the renal function improves. We are following up renal ultrasound, noted to have had negative stress echo and Holter as an outpatient. Renal function appears stable 10 item review of systems was completed and is negative aside from history of present illness OBJECTIVE: VS, labs, imaging reviewed NAD, AAO, resting comfortably in bed. RRR s1/2 no mgr Normal muscle tone, moves all 5 extremities with normal apparent strength Neck is supple, trachea midline, no anne LN Lungs CTAB with sym expansion NT ND +BS no anne organomegaly CN2-12 wnl; no FND NC AT EOMI PERRLA Normal mood, appropriate behavior, euthymic affect No skin breakdown or rashes noted Telemetry reviewed, no significant aberrancies Renal ultrasound without hydronephrosis and nonspecific increased renal cortical parenchymal densities suggestive of chronic medical renal disease with small appearing left renal cysts Head CT without any acute evidence of intracranial pathology Admission chest x-ray without acute pathology Admission EKG with normal sinus rhythm possible left atrial enlargement, LVH, borderline prolonged QT interval with QTC of 479 ASSESSMENT AND PLAN: Patient presents with hypertensive urgency with hypertensive encephalopathy which has resolved, blood pressure is improved. Overnight but this morning at 530 they had a reading of 175/88. Problems include: -Hypertensive emergency, improved. Resuming RONY inhibitor at 1/2 dose given borderline renal function and will need renal FU as OP and recheck BMP within 3- 5 days if discharged; if this improves his pressure he could be discharged today. Will clear with nephrology prior to discharge -NSTEMI, type II, improved, likely subendocardial ischemia in the setting of acute kidney injury secondary to demand. Stress testing per cardiology. Has been seen by cardiology in the past here by Dr. Dave and follows with Henry Cortes MD at [facility] last visit ~6 months ago, stress test and echo reportedly normal. Followup within 2 weeks of DC with Dr. Henry Attoti. ) -Acute kidney injury likely secondary to diuretic use as well as uncontrolled hypertension. Continue to monitor BMP. At risk for hypertensive kidney disease. 1.3 on November 01-1.4 on November 02, will trend to ensure resolution. -Hypokalemia (noted 11/01, 11/02. Trend.) -Transaminitis with hyperbilirubinemia -Hx D-CHF -Hx Hematuria -Hx ASA Allergy (States facial allergy) -Hx DM (Start SSI if glucose consistently >180) -Hx HLD -Mild AR/TR -Hx Noncompliance (Counseled) -Overweight (BMI 27.6; rehabilitation counselor prior to DC) Full Code
[2019-11-04] MEDS ORDERED: NIFEdipine E.R. 30 MG TABLET (FP) PO SCH (10:00)
--- NOTE | 2019-11-04 10:22 | PN ---
Progress Note, Physician History of Present Illness: Chest pain, cough, headache similar to previous cases of HTN urgency resolved with BP control. Allergies: ASA, Motrin->facial swelling Past surgical history: None reported. Social history: No reported alcohol, drug or cigarette use Cash Application Representative: Henry Cortes MD at [facility] last visit 6 months ago, stress test and echo reportedly normal - Current Medication List Current Medications: Active Medications Carvedilol (Coreg -) 12.5 mg PO BID [facility] Last Admin: 11/03/19 21:36 Dose: 12.5 mg Heparin Sodium (Porcine) (Heparin -) 5,000 unit SQ TID [facility] Last Admin: 11/04/19 05:57 Dose: 5,000 unit Losartan Potassium (Cozaar -) 25 mg PO DAILY [facility] Nifedipine (Procardia Xl -) 30 mg PO DAILY [facility] - Objective Vital Signs: Vital Signs Temperature 99.2 F 11/04/19 05:24 Pulse Rate 70 11/04/19 05:24 Respiratory Rate 18 11/04/19 05:24 Blood Pressure 174/88 H 11/04/19 05:24 O2 Sat by Pulse Oximetry (%) 98 11/03/19 20:12 Constitutional: Yes: No Distress, Calm Neck: Yes: Supple Cardiovascular: Yes: Regular Rate and Rhythm Respiratory: Yes: Regular, CTA Bilaterally Gastrointestinal: Yes: Normal Bowel Sounds, Soft Edema: No Labs: CBC, BMP 11/02/19 05:15 11/04/19 06:23 - ....Imaging EKG: Report Reviewed (Tele: NSR) Problem List - Problems (1) Hypertensive encephalopathy Code(s): I67.4 - HYPERTENSIVE ENCEPHALOPATHY (2) Hypertensive heart disease Code(s): I11.9 - HYPERTENSIVE HEART DISEASE WITHOUT HEART FAILURE Qualifiers: Heart failure presence: without heart failure Qualified Code(s): I11.9 - Hypertensive heart disease without heart failure (3) Hypertensive urgency Code(s): I16.0 - HYPERTENSIVE URGENCY (4) Subendocardial ischemia Code(s): I24.8 - OTHER FORMS OF ACUTE ISCHEMIC HEART DISEASE Assessment/Plan Renal US: 11/04/28 Renal US: No hydro, chronic medical renal disease Echo: 08/06/2019 Mild cLVH low normal LVEF 50-55%, impaired LV compliance, normal RV size and fxn, tr-mild TR, mild AR, no pericardial effusion Echo: 11/04/2018 Mod cLVH and borderline normal LV systolic function LVEF 50-55% , mild MR, TR, AR 1. Hypertensive urgency, hypertensive heart disease with encephelopathy resolving 2. Palpitations w/o events on telemetry 3. Diastolic dysfunction with subendocardial ischemia 4. Hematuria 5. 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 Medication noncompliance 8. Hypokalemia 9. Abnl LFTs improving P:1. Trops have plateaued, telemetry w/o arrhythmia, repleted K, f/u prt to international marketing executive ratio 2. Continue carvedilol 12.5 bid, Procardia XL 30 qd and increase losartan 50 qd with uptitration as tolerated as renal fxn stabilizes, emphasized importance of diet and medication compliance 3. Eventual f/u with Dr. Henry Cortes, previously underwent stress echo to exclude ischemia and holter monitoring to assess arrhythmia burden as outpatient
[2019-11-04] MEDS: CARVEDILOL 12.5 MG TABLET (FP) PO SCH ×2 (10:38→21:08)
[2019-11-04] MEDS: LOSARTAN POTASSIUM 25 MG TABLET PO SCH (10:38)
[2019-11-04] MEDS ORDERED: NIFEdipine E.R. 30 MG TABLET (FP) PO ONE (14:44)
--- NOTE | 2019-11-04 15:29 | PN ---
Progress Note, Physician History of Present Illness: Pt seen and examined at bedside. He is awake and alert. He denies headache or chest pain. - Current Medication List Current Medications: Active Medications Carvedilol (Coreg -) 12.5 mg PO BID [facility] Last Admin: 11/04/19 10:38 Dose: 12.5 mg Heparin Sodium (Porcine) (Heparin -) 5,000 unit SQ TID HYACINTH Last Admin: 11/04/19 15:17 Dose: 5,000 unit Losartan Potassium (Cozaar -) 25 mg PO DAILY [facility] Last Admin: 11/04/19 10:38 Dose: 25 mg Nifedipine (Procardia Xl -) 60 mg PO DAILY [facility] - Objective Vital Signs: Vital Signs Temperature 98.8 F 11/04/19 14:11 Pulse Rate 71 11/04/19 14:11 Respiratory Rate 20 11/04/19 14:11 Blood Pressure 182/88 H 11/04/19 14:11 O2 Sat by Pulse Oximetry (%) 98 11/04/19 09:00 Constitutional: Yes: Calm Eyes: Yes: Conjunctiva Clear HENT: Yes: Atraumatic Neck: Yes: Supple Cardiovascular: Yes: S1, S2 Respiratory: Yes: CTA Bilaterally Gastrointestinal: Yes: Normal Bowel Sounds, Soft Genitourinary: Yes: WNL Musculoskeletal: Yes: WNL Edema: No Neurological: Yes: Oriented Psychiatric: Yes: Oriented Labs: CBC, BMP 11/02/19 05:15 11/04/19 06:23 Problem List - Problems (1) Headache Code(s): R51 - HEADACHE Qualifiers: Headache type: unspecified Headache chronicity pattern: acute headache (2) Hypertension Code(s): I10 - ESSENTIAL (PRIMARY) HYPERTENSION Qualifiers: Hypertension type: unspecified Qualified Code(s): I10 - Essential (primary ) hypertension Assessment/Plan Current Medications Generic Name Dose Route Start Last Admin Trade Name Freq PRN Reason Stop Dose Admin Carvedilol 12.5 mg 11/02/19 22:00 11/04/19 10:38 Coreg - PO 12.5 mg BID HYACINTH Administration Heparin Sodium (Porcine) 5,000 unit 11/01/19 23:30 11/04/19 15:17 Heparin - SQ 5,000 unit TID HYACINTH Administration Losartan Potassium 25 mg 11/04/19 10:15 11/04/19 10:38 Cozaar - PO 25 mg DAILY HYACINTH Administration Nifedipine 60 mg 11/05/19 10:00 Procardia Xl - PO DAILY [facility] Impression 1. azotemia 2. htn 3. non compliance 4. proteinuria Plan - cont to monitor bp - titrate meds, can increase losartan - titrate coreg as tolerated - discussed compliance with meds - renal ultrasound suggestive of ckd
--- NOTE | 2019-11-04 18:46 | PN ---
Physical Exam: SUBJECTIVE: Patient seen and examined. Would like to go home but explained to him that his BP is still elevated, amenable to stay until BP improves. Denies chest pain, SOB, abd pain, headache, or other concerns. OBJECTIVE: Vital Signs Period Temp Pulse Resp BP Sys/Arias Pulse Ox Last 24 Hr 98.6 F-99.2 F 70-78 18-20 147-182/82-92 98-98 GENERAL: The patient is awake, alert, and fully oriented, in no acute distress. HEAD: Normal with no signs of trauma. EYES: EOMI, no ptosis ENT: MMM NECK: Trachea midline, full range of motion, supple. LUNGS: Breath sounds equal, clear to auscultation bilaterally, no wheezes, no crackles, no accessory muscle use. HEART: diastolic murmurs noted. Regular rhythm ABDOMEN: Soft, nontender, nondistended, normoactive bowel sounds, no guarding EXTREMITIES: 2+ pulses, warm, well-perfused, no edema. NEUROLOGICAL: Normal speech, normal gait. 5/5 strength upper and lower extremities PSYCH: Normal mood, normal affect SKIN: Warm, dry, normal turgor, no rashes or lesions noted Laboratory Results - last 24 hr 11/04/19 06:23 Sodium 141 Potassium 3.5 Chloride 109 H Carbon Dioxide 27 Anion Gap 5 L BUN 23.5 H Creatinine 1.4 H Est GFR (CKD-EPI)AfAm 65.09 Est GFR (CKD-EPI)NonAf 56.16 Random Glucose 90 Calcium 8.3 L Total Bilirubin 1.0 AST 18 ALT 40 Alkaline Phosphatase 76 Total Protein 6.4 Albumin 3.2 L Active Medications Generic Name Dose Route Start Last Admin Trade Name Freq PRN Reason Stop Dose Admin Carvedilol 12.5 mg 11/02/19 22:00 11/04/19 10:38 Coreg - PO 12.5 mg BID HYACINTH Administration Heparin Sodium (Porcine) 5,000 unit 11/01/19 23:30 11/04/19 15:17 Heparin - SQ 5,000 unit TID HYACINTH Administration Losartan Potassium 25 mg 11/04/19 10:15 11/04/19 10:38 Cozaar - PO 25 mg DAILY [facility]ACIN[facility] Administration Nifedipine 60 mg 11/05/19 10:00 Procardia Xl - PO DAILY [facility] ASSESSMENT/PLAN: 54 y/o/m with PMHx of uncontrolled HTN who presented with progressive pressure- like headache over 3 days as well as intermittent chest pain, blurry vision, and abdominal pain. #Hypertensive emergency - Initial BP: 218/117 in ED, now improving - Trop trended to peak, now downtrending - EKG: NSR with LAE, LVH and nonspecific T wave changes - Coreg 12.5 PO BID - Nifedipine increased to 60mg daily - discontinue HCTZ - restarted Losartan at 25mg. Cr marginally improved - Utox: negative - Consider workup of secondary HTN as outpatient - Encourage importance of medication compliance #DILLAN vs likely CKD - UA with 3+ protein - Nephro consulted - Cr at 1.4 today, marginal improvement - renal U/S - no hydronephrosis, nonspecific renal cortical parenchymal densities suggestive of chronic medical renal disease. Simple appearing small left renal cysts. - will need outpatient Nephrology follow up #FEN - No IVF, encourage PO intake - Sodium-controlled diet - monitor and replete lytes as needed #DVT ppx - Heparin #Disposition - D/C pending improvement in BP, likely plan for tomorrow Visit type - Emergency Visit Emergency Visit: Yes ED Registration Date: 11/01/19 Care time: The patient presented to the Emergency Department on the above date and was hospitalized for further evaluation of their emergent condition. - New Patient This patient is new to me today: No - Critical Care Critical Care patient: No ATTENDING PHYSICIAN STATEMENT I saw and evaluated the patient. I reviewed the resident's note and discussed the case with the resident. I agree with the resident's findings and plan as documented. SUBJECTIVE: OBJECTIVE: ASSESSMENT AND PLAN:
[2019-11-04] MEDS ORDERED: ACETAMINOPHEN 325 MG TABLET (FP) PO PRN (20:23)
[2019-11-05] MEDS: HEPARIN NA (PORCINE) 5,000 UNITS/ML 1ML VIAL SQ SCH (05:54)
[2019-11-05 07:50] LABS: BLOOD UREA NITROGEN 26.7 mg/dL (7-18); CALCIUM 8.5 mg/dL (8.5-10.1); CREATININE 1.4 mg/dL (0.55-1.3); POTASSIUM 3.4 mmol/L (3.5-5.1)
--- NOTE | 2019-11-05 08:33 | PN ---
Teaching Attending Note Name of Resident: Jason Garcia ATTENDING PHYSICIAN STATEMENT I saw and evaluated the patient. I reviewed the resident's note and discussed the case with the resident. I agree with the resident's findings and plan as documented. SUBJECTIVE: Seen and examined; please see resident note for further historical information. I personally verified all gonzalez historical information and exam findings. Personally interpreted all imaging and diagnostics and reviewed appropriate consults. I reviewed all labs and vital signs as per resident note and EMR as documented. I agree with the above assessment and plan unless supplemented by myself in the follow 10 item review of systems was completed and is negative aside from history of present illness OBJECTIVE: VS, labs, imaging reviewed NAD, AAO, resting comfortably in bed. RRR s1/2 no mgr Normal muscle tone, moves all 5 extremities with normal apparent strength Neck is supple, trachea midline, no anne LN Lungs CTAB with sym expansion NT ND +BS no anne organomegaly CN2-12 wnl; no FND NC AT EOMI PERRLA Normal mood, appropriate behavior, euthymic affect No skin breakdown or rashes noted DC held as SBP >170 yesterday; improved this AM will go home. Agree with resident DC plan as outlined All questions answered; has reached maximum benefit for this hospitalization. ASSESSMENT AND PLAN:
[2019-11-05 08:48] LABS: MAGNESIUM 2.1 mg/dL (1.8-2.4)
[2019-11-05] MEDS: CARVEDILOL 12.5 MG TABLET (FP) PO SCH (09:02)
[2019-11-05] MEDS: LOSARTAN POTASSIUM 25 MG TABLET PO SCH (09:02)
[2019-11-05 09:10] VITALS: BP 137/74; PULSE 73; TEMP 98.7
--- NOTE | 2019-11-05 09:44 | PN ---
Progress Note, Physician History of Present Illness: Chest pain, cough, headache similar to previous cases of HTN urgency resolved with BP control. Allergies: ASA, Motrin->facial swelling Past surgical history: None reported. Social history: No reported alcohol, drug or cigarette use Digital Campaign Specialist: Henry Cortes MD at [facility] last visit 6 months ago, stress test and echo reportedly normal - Current Medication List Current Medications: Active Medications Acetaminophen (Tylenol -) 650 mg PO Q6H PRN PRN Reason: Fever Or Pain Last Admin: 11/04/19 20:32 Dose: 650 mg Carvedilol (Coreg -) 12.5 mg PO BID [facility] Last Admin: 11/05/19 09:02 Dose: 12.5 mg Heparin Sodium (Porcine) (Heparin -) 5,000 unit SQ TID [facility] Last Admin: 11/05/19 05:54 Dose: 5,000 unit Losartan Potassium (Cozaar -) 25 mg PO DAILY [facility] Last Admin: 11/05/19 09:02 Dose: 25 mg Nifedipine (Procardia Xl -) 60 mg PO DAILY [facility] Last Admin: 11/05/19 09:02 Dose: 60 mg Potassium Chloride (K-Dur -) 40 meq PO ONCE ONE Stop: 11/05/19 08:09 Potassium Chloride (K-Dur -) 40 meq PO ONCE ONE Stop: 11/05/19 15:01 - Objective Vital Signs: Vital Signs Temperature 98.7 F 11/05/19 09:09 Pulse Rate 73 11/05/19 09:09 Respiratory Rate 18 11/05/19 09:09 Blood Pressure 137/74 11/05/19 09:09 O2 Sat by Pulse Oximetry (%) 96 11/05/19 09:00 Constitutional: Yes: No Distress, Calm Neck: Yes: Supple Cardiovascular: Yes: Regular Rate and Rhythm Respiratory: Yes: Regular, CTA Bilaterally Gastrointestinal: Yes: Normal Bowel Sounds, Soft Edema: No Labs: CBC, BMP 11/02/19 05:15 11/05/19 06:09 Problem List - Problems (1) Hypertensive encephalopathy Code(s): I67.4 - HYPERTENSIVE ENCEPHALOPATHY (2) Hypertensive heart disease Code(s): I11.9 - HYPERTENSIVE HEART DISEASE WITHOUT HEART FAILURE Qualifiers: Heart failure presence: without heart failure Qualified Code(s): I11.9 - Hypertensive heart disease without heart failure (3) Hypertensive urgency Code(s): I16.0 - HYPERTENSIVE URGENCY (4) Subendocardial ischemia Code(s): I24.8 - OTHER FORMS OF ACUTE ISCHEMIC HEART DISEASE Assessment/Plan Renal US: 11/04/28 Renal US: No hydro, chronic medical renal disease Echo: 08/06/2019 Mild cLVH low normal LVEF 50-55%, impaired LV compliance, normal RV size and fxn, tr-mild TR, mild AR, no pericardial effusion Echo: 11/04/2018 Mod cLVH and borderline normal LV systolic function LVEF 50-55% , mild MR, TR, AR 1. Hypertensive urgency, hypertensive heart disease with encephelopathy resolving 2. Palpitations w/o events on telemetry 3. Diastolic dysfunction with subendocardial ischemia 4. Hematuria 5. 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 Medication noncompliance 8. Hypokalemia 9. Abnl LFTs improving P:1. Trops have plateaued, telemetry w/o arrhythmia, repleted K, f/u prt to slide attendant ratio 2. Continue carvedilol 12.5 bid, Procardia XL 30 qd and increase losartan 50 qd with uptitration as tolerated as renal fxn stabilizes, emphasized importance of diet and medication compliance 3. Eventual f/u with Dr. Henry Cortes, previously underwent stress echo to exclude ischemia and holter monitoring to assess arrhythmia burden as outpatient
[2019-11-05] MEDS ORDERED: NIFEdipine E.R. 30 MG TABLET (FP) PO SCH (10:00)
[2019-11-05] MEDS ORDERED: POTASSIUM CHLORIDE TABS 20 MEQ TABLET.ER (FP) PO ONE ×2 (10:00→15:00)
--- NOTE | 2019-11-05 10:59 | PN ---
Progress Note, Physician History of Present Illness: Pt seen and examined at bedside. He is awake and alert. He is eager to go home. - Current Medication List Current Medications: Active Medications Acetaminophen (Tylenol -) 650 mg PO Q6H PRN PRN Reason: Fever Or Pain Last Admin: 11/04/19 20:32 Dose: 650 mg Carvedilol (Coreg -) 12.5 mg PO BID [facility] Last Admin: 11/05/19 09:02 Dose: 12.5 mg Heparin Sodium (Porcine) (Heparin -) 5,000 unit SQ TID [facility] Last Admin: 11/05/19 05:54 Dose: 5,000 unit Losartan Potassium (Cozaar -) 25 mg PO DAILY [facility] Last Admin: 11/05/19 09:02 Dose: 25 mg Nifedipine (Procardia Xl -) 60 mg PO DAILY [facility] Last Admin: 11/05/19 09:02 Dose: 60 mg - Objective Vital Signs: Vital Signs Temperature 98.7 F 11/05/19 09:09 Pulse Rate 73 11/05/19 09:09 Respiratory Rate 18 11/05/19 09:09 Blood Pressure 137/74 11/05/19 09:09 O2 Sat by Pulse Oximetry (%) 96 11/05/19 09:00 Constitutional: Yes: Calm Eyes: Yes: Conjunctiva Clear HENT: Yes: Atraumatic Neck: Yes: Supple Cardiovascular: Yes: S1, S2 Respiratory: Yes: CTA Bilaterally Gastrointestinal: Yes: Soft Genitourinary: Yes: WNL Musculoskeletal: Yes: WNL Edema: No Integumentary: Yes: WNL Neurological: Yes: Oriented Psychiatric: Yes: Oriented Labs: CBC, BMP 11/02/19 05:15 11/05/19 06:09 Problem List - Problems (1) Headache Code(s): R51 - HEADACHE Qualifiers: Headache type: unspecified Headache chronicity pattern: acute headache (2) Hypertension Code(s): I10 - ESSENTIAL (PRIMARY) HYPERTENSION Qualifiers: Hypertension type: unspecified Qualified Code(s): I10 - Essential (primary ) hypertension Assessment/Plan Current Medications Generic Name Dose Route Start Last Admin Trade Name Freq PRN Reason Stop Dose Admin Acetaminophen 650 mg 11/04/19 20:23 11/04/19 20:32 Tylenol - PO 650 mg Q6H PRN Administration Fever Or Pain Carvedilol 12.5 mg 11/02/19 22:00 11/05/19 09:02 Coreg - PO 12.5 mg BID HYACINTH Administration Heparin Sodium (Porcine) 5,000 unit 11/01/19 23:30 11/05/19 05:54 Heparin - SQ 5,000 unit TID HYACINTH Administration Losartan Potassium 25 mg 11/04/19 10:15 11/05/19 09:02 Cozaar - PO 25 mg DAILY HYACINTH Administration Nifedipine 60 mg 11/05/19 10:00 11/05/19 09:02 Procardia Xl - PO 60 mg DAILY HYACINTH Administration Impression 1. azotemia 2. htn 3. non compliance 4. proteinuria Plan - bp improved - replace potassium - will need outpt follow up - renal ultrasound suggestive of ckd
[2019-11-05] MEDS ORDERED: PT OWN MED DRAWER 7, Y5N ONE (11:26)
--- NOTE | 2019-11-05 13:31 | DS ---
Physical Exam: SUBJECTIVE: Patient seen and examined. States he would like to go home. No acute events overnight, BP well controlled. Denies chest pain, headache, abd pain, SOB, chills, dizziness. OBJECTIVE: Vital Signs Period Temp Pulse Resp BP Sys/Arias Pulse Ox Last 24 Hr 97.6 F-98.8 F 69-77 17-20 133-182/70-93 95-96 PHYSICAL EXAM GENERAL: The patient is awake, alert, and fully oriented, in no acute distress. HEAD: Normal with no signs of trauma. EYES: EOMI, no ptosis ENT: MMM NECK: Trachea midline, full range of motion, supple. LUNGS: CTA B/L, no wheezes, no crackles, no accessory muscle use. HEART: diastolic murmur noted. RRR ABDOMEN: Soft, nontender, nondistended, normoactive bowel sounds, no guarding EXTREMITIES: 2+ pulses, warm, well-perfused, no edema. NEUROLOGICAL: Normal speech, normal gait. 5/5 strength upper and lower extremities PSYCH: Normal mood, normal affect SKIN: Warm, dry, normal turgor, no rashes or lesions noted LABS Laboratory Results - last 24 hr 11/05/19 06:09 Sodium 140 Potassium 3.4 L Chloride 108 H Carbon Dioxide 26 Anion Gap 6 L BUN 26.7 H Creatinine 1.4 H Est GFR (CKD-EPI)AfAm 65.09 Est GFR (CKD-EPI)NonAf 56.16 Random Glucose 100 Calcium 8.5 Magnesium 2.1 HOSPITAL COURSE: Date of Admission:11/01/19 Date of Discharge: 11/05/19 54 y/o/m with PMHx of uncontrolled HTN who presented with progressive pressure- like headache over 3 days as well as intermittent chest pain, blurry vision, and abdominal pain. Diagnosed with hypertensive emergency. Trops trended to peak of 0.20, EKG without signs of ischemia. Anti-HTN medications uptitrated until blood pressure well controlled. Kidney function noted to be elevated during admission. Renal U/S showed nonspecific renal cortical parenchymal densities suggestive of chronic medical renal disease and simple appearing left renal cysts. Patient referred to Nephrology as outpatient for further management of kidney disease. Patient stable for discharge home at this time with prescriptions for Losartan 25mg daily, Coreg 12.5mg BID, Nifedipine ER 60mg daily and with followup instructions. Minutes to complete discharge: 36 Discharge Summary Problems reviewed: Yes Reason For Visit: CHEST PAIN Condition: Improved - Instructions Diet, Activity, Other Instructions: You presented to the hospital due to elevated blood pressure and a headache. You stated that you had not taken your blood pressure medications for an extended period of time. We started you on proper blood pressure medications while in the hospital to better control your blood pressure. Your kidney function was noted to be elevated in the hospital and you were seen by a director student union. A renal ultrasound was completed which showed evidence of chronic medical kidney disease. Please follow up with your primary care doctor, cardiology, and nephrology for further care of your medical problems. Medication Changes: 1. START taking Losartan 25mg once daily for better control of your blood pressure. 2. START taking Coreg 12.5mg twice daily for better control of your blood pressure. 3. START taking Nifedipine 60mg once daily for better control of your blood pressure. 4. STOP taking Losartan 50mg. 5. STOP taking Coreg 6.25mg. 6. STOP taking losartan/hydrochlorothiazide 50-12.5. Follow up labs: 1. Please have your basic metabolic panel checked in 5 days to monitor your kidney function. Follow up with the following physicians: 1. Please follow up with your primary care provider within 3-5 days of discharge for further management of your medical conditions and to discuss the medications you were started on while in the hospital. 2. 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 Cortes, within 1 week of discharge for further workup of your heart disease. 3. Recommended to follow up with Nephrology, Dr. eRed, within 1 week of discharge for further workup of your kidney disease. Activity and Diet 1. You are being discharged home. Recommend daily exercise to strengthen your muscles. 2. Please monitor your diet as you need to consume a diet low in salt and drink plenty of fluids. Continue all your other medications as prescribed Please return to the ER if you have any signs or symptoms of chest pain, shortness of breath, uncontrollable fever, chills, nausea, vomiting, numbness, tingling, or weakness in any part of your body, changes in vision, or slurred speech. Please return to the ER if symptoms persist, worsen, or new symptoms arise. Referrals: [facility] [place] [Provider Group] Larry Reed MD [Staff Physician] - Dayday Dave MD [Staff Physician] - Disposition: HOME - Home Medications Comprehensive Discharge Medication List: Ambulatory Orders Carvedilol [Coreg -] 12.5 mg PO BID 30 Days #60 tablet 11/04/19 Losartan Potassium [Cozaar -] 25 mg PO DAILY 30 Days #30 tablet 11/04/19 Nifedipine ER [Procardia XL -] 60 mg PO DAILY 30 Days #60 tab.er.24 11/04/19 This patient is new to me today: Yes Date on this admission: 11/05/19 Emergency Visit: No Critical Care patient: No - Discharge Referral Referred to [facility] No ATTENDING PHYSICIAN STATEMENT I saw and evaluated the patient. I reviewed the resident's note and discussed the case with the resident. I agree with the resident's findings and plan as documented. SUBJECTIVE: OBJECTIVE: ASSESSMENT AND PLAN:
== END 2019-11-05 11:05 | disposition home or self-care (01) | DRG 199 ==
LOC: JER 17:38 → JERBED 20:43 → J4W 11-02 14:55
PROVIDERS: ADMIT Internal Medicine; ATTEND Internal Medicine
DX: I16.0 Hypertensive urgency (principal); R07.89 Other chest pain; E78.00 Pure hypercholesterolemia, unspecified; R51 Headache; E11.9 Type 2 diabetes mellitus without complications; N17.9 Acute kidney failure, unspecified; E87.6 Hypokalemia; R94.5 Abnormal results of liver function studies; R31.9 Hematuria, unspecified; I13.0 Hypertensive heart and chronic kidney disease with heart failure and stage 1 through stage 4 chronic kidney disease, or unspecified chronic kidney disease; N18.9 Chronic kidney disease, unspecified; I50.32 Chronic diastolic (congestive) heart failure; I67.4 Hypertensive encephalopathy; N28.1 Cyst of kidney, acquired; R00.2 Palpitations; H53.8 Other visual disturbances; R79.89 Other specified abnormal findings of blood chemistry; I24.9 Acute ischemic heart disease, unspecified; Z91.19 Patient's noncompliance with other medical treatment and regimen; E66.3 Overweight; Z68.27 Body mass index [BMI] 27.0-27.9, adult
CPT/HCPCS: 36415; 70450-TC; 71045-TC-FY; 76775-TC; 80048; 80053; 80061; 80307; 81003; 83036; 83721; 83735; 84484; 85025; 85027; 93005; 93010; 97116-GP; 97161-GP; 99285-25; J1644

== ENCOUNTER 2021-10-04 17:18 | Inpatient (IN) | payer OTHER ==
[2021-10-04 17:33] VITALS: BMI 29.1
[2021-10-04 20:13] LABS: EPI CELLS 1 /uL (0-25.1); HYALINE CASTS 1 /uL (0-3.1); PH,URINE 5.5 (5.0-8.0); URINE APPEARANCE CLEAR; URINE BACTERIA 1 /uL (0-1359); URINE BILIRUBIN NEGATIVE (NEGATIVE); URINE COLOR YELLOW; URINE GLUCOSE (UA) NEGATIVE (NEGATIVE); URINE KETONE NEGATIVE (NEGATIVE); URINE LEUK ESTERASE NEGATIVE (NEGATIVE); URINE NITRITE NEGATIVE (NEGATIVE); URINE PROTEIN 2+ (NEGATIVE); URINE RBC 14 /uL (0-23.9); URINE UROBILINOGEN 0.2 mg/dL (0.2-1.0); URINE WBC 4 /uL (0-25.8)
[2021-10-04 20:33] LABS: BASO % 0.5 % (0-2.0); EOS % 1.4 % (0-4.5); HEMATOCRIT 43.5 % (35.4-49); HEMOGLOBIN 14.5 GM/dL (11.7-16.9); LYMPH % 30.7 % (8-40); MCHC 33.4 g/dl (32.0-35.9); MEAN CELL VOLUME 80.8 fl (80-96); MEAN PLT VOLUME 9.4 fl (7.5-11.1); MONO % 7.9 % (3.8-10.2); NEUT % 59.5 % (42.8-82.8); PLATELET COUNT 114 10^3/uL (134-434); RBC 5.38 M/mm3 (4.00-5.60); RDW 13.7 % (11.9-15.9); WHITE BLOOD COUNT 5.4 K/mm3 (4.0-10.0)
[2021-10-04 20:43] LABS: INR 1.03 (0.83-1.09); PROTHROMBIN TIME (PATIENT) 11.5 SEC (9.7-13.0)
[2021-10-04 20:45] LABS: ACTIVATED PTT 36.2 SECONDS (25.2-36.5)
[2021-10-04 20:53] LABS: CALCIUM 8.6 mg/dL (8.5-10.1)
[2021-10-04 20:54] LABS: ALBUMIN 3.6 g/dl (3.4-5.0); BLOOD UREA NITROGEN 29.4 mg/dL (7-18)
[2021-10-04 20:57] LABS: CREATININE 1.7 mg/dL (0.55-1.3)
[2021-10-04 20:58] LABS: TOT PROT 7.5 g/dl (6.4-8.2)
[2021-10-04 20:59] LABS: BILIRUBIN,TOTAL 0.2 mg/dL (0.2-1)
[2021-10-04] MEDS ORDERED: METOCLOPRAMIDE HCL INJECTION 10 MG/2 ML VIAL IVPB ONE (20:59)
[2021-10-04] MEDS ORDERED: METOCLOPRAMIDE HCL INJECTION 10 MG/2 ML VIAL ONE (21:06)
[2021-10-04] MEDS ORDERED: CLOPIDOGREL BISULFATE 300 MG TABLET PO ONE (22:42)
[2021-10-04] MEDS ORDERED: LOSARTAN POTASSIUM 50 MG TABLET PO ONE (22:42)
[2021-10-04] MEDS ORDERED: CARVEDILOL 12.5 MG TABLET (FP) PO ONE (22:42)
[2021-10-04] MEDS ORDERED: CARVEDILOL 12.5 MG TABLET (FP) ONE (22:49)
[2021-10-04] MEDS ORDERED: CLOPIDOGREL BISULFATE 300 MG TABLET ONE (22:50)
[2021-10-04] MEDS ORDERED: LOSARTAN POTASSIUM 50 MG TABLET ONE (22:50)
[2021-10-05] MEDS ORDERED: SODIUM CHLORIDE 0.9% 500 ML INFUS.BAG IV ONE (00:59)
[2021-10-05] MEDS ORDERED: ACETAMINOPHEN 325 MG TABLET (FP) PO PRN (02:50)
[2021-10-05] MEDS ORDERED: NIFEdipine E.R. 30 MG TABLET PO ONE (03:01)
[2021-10-05] MEDS ORDERED: NIFEdipine E.R. 30 MG TABLET ONE (03:43)
[2021-10-05] MEDS ORDERED: HEPARIN NA (PORCINE) 5,000 UNITS/ML 1ML VIAL ONE (06:01)
[2021-10-05] MEDS: HEPARIN NA (PORCINE) 5,000 UNITS/ML 1ML VIAL SQ SCH ×3 (06:22→22:35)
[2021-10-05 06:59] LABS: BASO % 0.5 % (0-2.0); EOS % 1.6 % (0-4.5); HEMATOCRIT 40.8 % (35.4-49); HEMOGLOBIN 14.1 GM/dL (11.7-16.9); LYMPH % 34.7 % (8-40); MCH 27.9 pg (25.7-33.7); MCHC 34.6 g/dl (32.0-35.9); MEAN CELL VOLUME 80.5 fl (80-96); MEAN PLT VOLUME 9.2 fl (7.5-11.1); MONO % 7.3 % (3.8-10.2); NEUT % 55.9 % (42.8-82.8); PLATELET COUNT 111 10^3/uL (134-434); RBC 5.07 M/mm3 (4.00-5.60); RDW 13.9 % (11.9-15.9); WHITE BLOOD COUNT 5.9 K/mm3 (4.0-10.0)
[2021-10-05 07:18] LABS: ALBUMIN 3.2 g/dl (3.4-5.0); BLOOD UREA NITROGEN 21.8 mg/dL (7-18); CALCIUM 8.2 mg/dL (8.5-10.1)
[2021-10-05 07:20] LABS: PHOSPHOROUS 2.4 mg/dL (2.5-4.9)
[2021-10-05 07:21] LABS: CREATININE 1.5 mg/dL (0.55-1.3)
[2021-10-05 07:22] LABS: BILIRUBIN,TOTAL 0.6 mg/dL (0.2-1); TOT PROT 6.8 g/dl (6.4-8.2)
[2021-10-05] MEDS ORDERED: TAMSULOSIN HCL 0.4 MG CAP ONE (09:59)
[2021-10-05] MEDS: TAMSULOSIN HCL 0.4 MG CAP PO SCH (10:03)
[2021-10-05] MEDS ORDERED: SODIUM CHLORIDE 0.45% 1,000 ML IV SCH (14:30)
[2021-10-05] MEDS: LOSARTAN 50MG/HCTZ 12.5MG 1 TAB PO SCH (14:34)
[2021-10-06 03:46] VITALS: TEMP 98.2
[2021-10-06] MEDS: HEPARIN NA (PORCINE) 5,000 UNITS/ML 1ML VIAL SQ SCH ×2 (06:48→14:50)
[2021-10-06 08:57] VITALS: BP 153/79; PULSE 73
[2021-10-06] MEDS ORDERED: NIFEdipine E.R. 30 MG TABLET PO SCH (10:00)
[2021-10-06] MEDS ORDERED: CARVEDILOL 12.5 MG TABLET (FP) PO SCH (10:00)
[2021-10-06] MEDS: TAMSULOSIN HCL 0.4 MG CAP PO SCH (10:11)
[2021-10-06] MEDS: LOSARTAN 50MG/HCTZ 12.5MG 1 TAB PO SCH (10:11)
[2021-10-06] MEDS ORDERED: ATORVASTATIN CA 20 MG TABLET (FP) PO SCH (22:00)
== END 2021-10-06 16:02 | disposition left against medical advice (07) | DRG 199 ==
LOC: JER 17:18 → JERBED 10-05 02:00 → J4W 10-05 12:36
PROVIDERS: ATTEND Nurse Practitioner Family
DX: I16.1 Hypertensive emergency (principal); I67.4 Hypertensive encephalopathy; N17.9 Acute kidney failure, unspecified; E78.5 Hyperlipidemia, unspecified; H53.8 Other visual disturbances; M54.2 Cervicalgia; M54.30 Sciatica, unspecified side; N40.0 Benign prostatic hyperplasia without lower urinary tract symptoms
CPT/HCPCS: 36415; 70450-TC; 71275-TC; 74174-TC; 80053; 80061; 81003; 82550; 83036; 83735; 84100; 84443; 84484; 85025; 85610; 85730; 86850; 86900; 86901; 87086; 93005; 93010; 93306-TC; 99285-25; C9803; J1644; U0003; U0005